=== PATIENT | male | born 1975 | race Caucasian/White ===

== ENCOUNTER 2019-06-27 22:18 | Emergency (ER) | payer OTHER ==
[2019-06-27 22:27] VITALS: TEMP 98.2
[2019-06-27] MEDS ORDERED: LORazepam 1 MG TAB PO STA (22:40)
--- NOTE | 2019-06-27 22:40 | ED ---
Psych HPI - General Source: police, RN notes reviewed, old records reviewed Mode of arrival: ambulatory - History of Present Illness MD Complaint: suicidal ideation, feels depressed -: days(s) Associated Psychiatric Symptoms: depression, suicidal ideation History of same: No Quality: constant Improves With: none Worsens With: alcohol Context: recent alcohol abuse Associated Symptoms: denies other symptoms Treatments Prior to Arrival: placed on mental health hold If Self Harm: admits thoughts of self harm <Dano Ziegler - Last Filed: 06/27/19 23:19> <Joni Johnson - Last Filed: 06/28/19 09:28> - General Chief Complaint: Psychiatric Symptoms Stated Complaint: mental health Time Seen by Provider: 06/27/19 22:25 - History of Present Illness Initial Comments: This is a 44-year-old male DF for evaluation patient presents today for evaluation regards to alcohol intoxication severe. Patient has been significantly depressed as of late secondary to losing employment secondary to pandemic. Patient has been drinking for a few days straight and drink to the point of passing out today was found with gun by him and daughter did call her teacher who was able to calling the police department. Patient for evaluation of suicidal thoughts probable suicidal ideation secondary to significantly increased stress (Dano Ziegler) - Related Data Allergies Allergy/AdvReac Type Severity Reaction Status Date / Time No Known Allergies Allergy Verified 06/27/19 22:42 Review of Systems ROS Other: All systems not noted in ROS Statement are negative. <Dano Ziegler - Last Filed: 06/27/19 23:19> ROS Other: All systems not noted in ROS Statement are negative. <Joni Johnson - Last Filed: 06/28/19 09:28> ROS Statement: Those systems with pertinent positive or pertinent negative responses have been documented in the HPI. Past Medical History Past Medical History: No Reported History History of Any Multi-Drug Resistant Organisms: None Reported Past Surgical History: No Surgical Hx Reported Past Psychological History: No Psychological Hx Reported Smoking Status: Never smoker Past Alcohol Use History: Abuse Past Drug Use History: None Reported <Dano Ziegler - Last Filed: 06/27/19 23:19> General Exam Limitations: no limitations General appearance: alert, in no apparent distress, appears intoxicated Head exam: Present: atraumatic, normocephalic, normal inspection Eye exam: Present: normal appearance, PERRL, EOMI. Absent: scleral icterus, conjunctival injection, periorbital swelling ENT exam: Present: normal exam, mucous membranes moist Neck exam: Present: normal inspection. Absent: tenderness, meningismus, lymphadenopathy Respiratory exam: Present: normal lung sounds bilaterally. Absent: respiratory distress, wheezes, rales, rhonchi, stridor Cardiovascular Exam: Present: regular rate, normal rhythm, normal heart sounds. Absent: systolic murmur, diastolic murmur, rubs, gallop, clicks GI/Abdominal exam: Present: soft, normal bowel sounds. Absent: distended, ten derness, guarding, rebound, rigid Extremities exam: Present: normal inspection, full ROM, normal capillary refill. Absent: tenderness, pedal edema, joint swelling, calf tenderness Back exam: Present: normal inspection Neurological exam: Present: alert, oriented X3, CN II-XII intact Psychiatric exam: Present: normal affect, normal mood Skin exam: Present: warm, dry, intact, normal color. Absent: rash <Dano Ziegler - Last Filed: 06/27/19 23:19> Course <Dano Ziegler - Last Filed: 06/27/19 23:19> Vital Signs 06/27/19 06/28/19 06/28/19 22:19 03:00 07:00 Temperature 98.2 F Pulse Rate 92 86 90 Respiratory 16 18 20 Rate Blood Pressure 153/93 133/87 196/103 O2 Sat by Pulse 98 96 95 Oximetry - Reevaluation(s) Reevaluation #1: 06/27/19 23:22 not scheduled to medical care total 0700 (Dano Ziegler) Medical Decision Making <Joni Johnson - Last Filed: 06/28/19 09:28> - Medical Decision Making Patient seen by mental health services with recommendation for discharge. They did assure the patient has no access to guns. Patient reevaluated by myself, Dr. Johnson. Patient denies suicidal ideation and does contract for safety. (Joni Johnson) Disposition <Dano Ziegler - Last Filed: 06/27/19 23:19> Is patient prescribed a controlled substance at d/c from ED?: No Time of Disposition: 09:27 <Joni Johnson - Last Filed: 06/28/19 09:28> Clinical Impression: Depression, Alcohol intoxication Disposition: HOME SELF-CARE Condition: Stable Instructions (If sedation given, give patient instructions): Depression (ED), Help Prevent Suicide (ED) Additional Instructions: Please follow-up with primary care physician in the next day or 2 for recheck. Please follow-up with mental health services as directed. Return for thoughts of self-harm, worsening symptoms or other concerns. Avoid alcohol. Referrals: Katie Jones DO [REFERRING] - 1-2 days
[2019-06-27] MEDS ORDERED: LORazepam 2 MG/ML INJ IV STA (22:43)
[2019-06-27] MEDS ORDERED: SODIUM CHLORIDE 0.9% 1,000 ML IV STA ×2 (22:43)
[2019-06-27] MEDS ORDERED: SODIUM CHLORIDE 0.9% 500 ML 500 ML IV STA (22:43)
[2019-06-28] MEDS ORDERED: LORazepam 2 MG/ML INJ IV STA (03:19)
[2019-06-28 09:27] VITALS: BP 165/96; PULSE 97; RESP 18
== END 2019-06-28 09:21 | disposition home or self-care (01) ==
LOC: EC 22:18
DX: F32.9 Major depressive disorder, single episode, unspecified (principal); F10.129 Alcohol abuse with intoxication, unspecified
CPT/HCPCS: 82075; 99285; 96374; 96376; 96361 ×9; J2060 ×2

== ENCOUNTER 2022-10-14 14:25 | Observation (INO) | payer OTHER ==
[2022-10-14] MEDS ORDERED: SODIUM CHLORIDE 0.9% 1,000 ML IV STA (14:35)
[2022-10-14] MEDS ORDERED: THIAMINE 100 MG TAB PO STA (14:35)
[2022-10-14] MEDS ORDERED: ASPIRIN 325 MG TAB PO STA (14:41)
[2022-10-14] MEDS ORDERED: ONDANSETRON 4 MG/2 ML VIAL IVP STA (14:44)
[2022-10-14 15:05] LABS: Basophils % (A) 0 %; Eosinophils % (A) 1 %; HCT 39.2 % (39.0-53.0); HGB 13.6 gm/dL (13.0-17.5); Lymphocytes % (A) 44 %; MCH 31.5 pg (25.0-35.0); MCHC 34.8 g/dL (31.0-37.0); MCV 90.6 fL (80.0-100.0); Mean Platelet Volume 8.3; Monocytes # (A) 0.3 k/uL (0-1.0); Monocytes % (A) 7 %; Neutrophils # (A) 2.1 k/uL (1.3-7.7); Neutrophils % (A) 46 %; Platelet Count 142 k/uL (150-450); RBC 4.32 m/uL (4.30-5.90); RDW 14.1 % (11.5-15.5); WBC 4.6 k/uL (3.8-10.6)
[2022-10-14 15:14] LABS: Partial Thromboplastin Time 23.8 sec (22.0-30.0); Prothrombin Time 10.5 sec (9.0-12.0)
--- NOTE | 2022-10-14 15:15 | ED ---
General Adult HPI - General Chief complaint: Psychiatric Symptoms Stated complaint: ETOH Time Seen by Provider: 10/14/22 14:35 Source: EMS Mode of arrival: EMS - History of Present Illness Initial comments: Patient is a 47-year-old male who presents to the emergency department for suicidal ideation. Patient is intoxicated he is an unreliable historian. According to EMS patient's daughter called due to suicidal ideation. Patient cannot provide any information about this. When asking about pain patient replies that he has chest and back pain for the past 3 days. He denies any ripping or tearing sensation. He cannot provide any information about cardiac history. - Related Data Home Medications Medication Instructions Recorded Confirmed Acetaminophen [Tylenol Arthritis] 650 mg PO Q8H PRN 10/14/22 10/14/22 Apixaban [Eliquis Starter Pack See Taper PO DIRECTED 10/14/22 10/14/22 (for VTE)] Atorvastatin [Lipitor] 40 mg PO DAILY 10/14/22 10/14/22 Ergocalciferol [Vitamin D2 (1250 1,250 mcg PO Q7D 10/14/22 10/14/22 Mcg = 34738 Iu)] Fenofibrate,Micronized 200 mg PO DAILY 10/14/22 10/14/22 [Fenofibrate] Magnesium Oxide [Magox 400] 400 mg PO DAILY 10/14/22 10/14/22 Multivitamins, Thera [Multivitamin 1 tab PO DAILY 10/14/22 10/14/22 (formulary)] NIFEdipine [Procardia XL] 90 mg PO DAILY 10/14/22 10/14/22 Pantoprazole [Protonix] 40 mg PO BID 10/14/22 10/14/22 Potassium Chloride ER [K-Dur 20] 20 meq PO DAILY 10/14/22 10/14/22 Thiamine [Vitamin B-1] 100 mg PO DAILY 10/14/22 10/14/22 buPROPion XL [Wellbutrin XL] 300 mg PO DAILY 10/14/22 10/14/22 busPIRone HCL [Buspar] 7.5 mg PO BID 10/14/22 10/14/22 carvediloL [Coreg] 25 mg PO BID 10/14/22 10/14/22 hydroCHLOROthiazide 12.5 mg PO DAILY 10/14/22 10/14/22 Allergies Allergy/AdvReac Type Severity Reaction Status Date / Time No Known Allergies Allergy Verified 10/14/22 17:19 Review of Systems ROS Statement: Those systems with pertinent positive or pertinent negative responses have been documented in the HPI. ROS Other: All systems not noted in ROS Statement are negative. Past Medical History Past Medical History: No Reported History History of Any Multi-Drug Resistant Organisms: None Reported Past Surgical History: No Surgical Hx Reported Past Psychological History: No Psychological Hx Reported Past Alcohol Use History: Abuse Past Drug Use History: None Reported General Exam General appearance: appears intoxicated Head exam: Present: atraumatic, normocephalic, normal inspection Eye exam: Present: normal appearance, PERRL, EOMI. Absent: scleral icterus, conjunctival injection, periorbital swelling Respiratory exam: Present: normal lung sounds bilaterally. Absent: respiratory distress, wheezes, rales, rhonchi, stridor Cardiovascular Exam: Present: regular rate, normal rhythm, normal heart sounds. Absent: systolic murmur, diastolic murmur, rubs, gallop, clicks GI/Abdominal exam: Present: soft, normal bowel sounds. Absent: distended, tenderness, guarding, rebound, rigid Skin exam: Present: warm, dry, intact, normal color. Absent: rash Course Vital Signs 10/14/22 14:36 Temperature 98.7 F Blood Pressure 122/76 Medical Decision Making - Medical Decision Making EKG taken at 145, interpreted by myself Sinus rhythm, no ST segment or T-wave abnormality Ventricular rate 87, AK interval 175, QRS duration 95, QTC 395 Was pt. sent in by a medical professional or institution (, PA, SURGERY SPECIALIST, urgent care, hospital, or long-term...) When possible be specific @ -[No] Did you speak to anyone other than the patient for history (EMS, parent, family, police, friend...)? What history was obtained from this source @ -[No] Did you review nursing and triage notes (agree or disagree)? Why? @ -[I reviewed and agree with nursing and triage notes] Were old charts reviewed (outside hosp., previous admission, EMS record, old EKG, old radiological studies, urgent care reports/EKG's, long-term records)? Report findings @ -[No old charts were reviewed] Differential Diagnosis (chest pain, altered mental status, abdominal pain women, abdominal pain men, vaginal bleeding, weakness, fever, dyspnea, syncope, headache, dizziness, GI bleed, back pain, seizure, CVA, palpatations, mental health)? @ -Differential Chest Pain: Stable Angina, Unstable Angina, STEMI, NSTEMI Aortic Dissection, Pneumothorax, Musculoskeletal, Esophageal Spasm GERD, Cholecystitis, Pancreatitis, Zoster, this is not meant to be an all-inclusive list. EKG interpreted by me (3pts min.). @ -[As above] X-rays interpreted by me (1pt min.). @ -No acute cardiopulmonary process CT interpreted by me (1pt min.). @ -[None done] U/S interpreted by me (1pt. min.). @ -[None done] What testing was considered but not performed or refused? (CT, X-rays, U/S, labs)? Why? @ -[None] What meds were considered but not given or refused? Why? @ -[None] Did you discuss the management of the patient with other professionals (professionals i.e. , PA, SURGERY SPECIALIST, lab, RT, psych nurse, social work nurse, towerman, teacher, executive vice president and chief operating officer, case making machine operator)? Give summary @ -[No] Was smoking cessation discussed for >3mins.? @ -[No] Was critical care preformed (if so, how long)? @ -[No] Were there social determinants of health that impacted care today? How? (Homelessness, low income, unemployed, alcoholism, drug addiction, transportatio n, low edu. Level, literacy, decrease access to med. care, [facility], rehab)? @ -[No] Was there de-escalation of care discussed even if they declined (Discuss DNR or withdrawal of care, Hospice)? DNR status @ -[No] What co-morbidities impacted this encounter? (DM, HTN, Smoking, COPD, CAD, Cancer, CVA, ARF, Chemo, Hep., AIDS, mental health diagnosis, sleep apnea, morbid obesity)? @ -[None] Was patient admitted / discharged? Hospital course, mention meds given and route, prescriptions, significant lab abnormalities, going to OR and other pertinent info. @ Patient continuously combative and agitated during visit he was given Ativan. Admitted for alcohol intoxication and possible suicidal ideation with CIWA protocol Michelle from [facility] accepts Undiagnosed new problem with uncertain prognosis? @ -[No] Drug Therapy requiring intensive monitoring for toxicity (Heparin, Nitro, Insulin, Cardizem)? @ -[No] Were any procedures done? @ -[No] Diagnosis/symptom? @ -alcohol intoxication Acute, or Chronic, or Acute on Chronic? @ -acute Uncomplicated (without systemic symptoms) or Complicated (systemic symptoms)? @ -uncomplicated Side effects of treatment? @ -[No] Exacerbation, Progression, or Severe Exacerbation? @ -[No] Poses a threat to life or bodily function? How? (Chest pain, USA, VT, pneumonia, PE, COPD, DKA, ARF, appy, cholecystitis, CVA, Diverticulitis, Homicidal, Suicidal, threat to staff... and all critical care pts) @ -Yes Dr. Mcgrath is my attending - Lab Data Result diagrams: 10/14/22 14:56 10/14/22 14:56 Lab Results 10/14/22 10/14/22 10/14/22 Range/Units 14:56 14:56 14:56 WBC 4.6 (3.8-10.6) k/uL RBC 4.32 (4.30-5.90) m/uL Hgb 13.6 (13.0-17.5) gm/dL Hct 39.2 (39.0-53.0) % MCV 90.6 (80.0-100.0) fL MCH 31.5 (25.0-35.0) pg MCHC 34.8 (31.0-37.0) g/dL RDW 14.1 (11.5-15.5) % Plt Count 142 L (150-450) k/uL MPV 8.3 Neutrophils % 46 % Lymphocytes % 44 % Monocytes % 7 % Eosinophils % 1 % Basophils % 0 % Neutrophils # 2.1 (1.3-7.7) k/uL Lymphocytes # 2.0 (1.0-4.8) k/uL Monocytes # 0.3 (0-1.0) k/uL Eosinophils # 0.0 (0-0.7) k/uL Basophils # 0.0 (0-0.2) k/uL PT 10.5 (9.0-12.0) sec INR 1.0 (<1.2) APTT 23.8 (22.0-30.0) sec Sodium 140 (137-145) mmol/L Potassium 4.1 (3.5-5.1) mmol/L Chloride 100 (98-107) mmol/L Carbon Dioxide 26 (22-30) mmol/L Anion Gap 14 mmol/L BUN 16 (9-20) mg/dL Creatinine 0.86 (0.66-1.25) mg/dL Est GFR (CKD-EPI)AfAm >90 (>60 ml/min/1.73 sqM) Est GFR (CKD-EPI)NonAf >90 (>60 ml/min/1.73 sqM) Glucose 115 H (74-99) mg/dL Calcium 8.5 (8.4-10.2) mg/dL Magnesium 2.0 (1.6-2.3) mg/dL Total Bilirubin 0.7 (0.2-1.3) mg/dL AST 75 H (17-59) U/L ALT 50 H (4-49) U/L Alkaline Phosphatase 85 (38-126) U/L Troponin I (0.000-0.034) ng/mL Total Protein 8.2 (6.3-8.2) g/dL Albumin 4.5 (3.5-5.0) g/dL Lipase 499 H (23-300) U/L Serum Alcohol 379 H* mg/dL 10/14/22 Range/Units 14:56 WBC (3.8-10.6) k/uL RBC (4.30-5.90) m/uL Hgb (13.0-17.5) gm/dL Hct (39.0-53.0) % MCV (80.0-100.0) fL MCH (25.0-35.0) pg MCHC (31.0-37.0) g/dL RDW (11.5-15.5) % Plt Count (150-450) k/uL MPV Neutrophils % % Lymphocytes % % Monocytes % % Eosinophils % % Basophils % % Neutrophils # (1.3-7.7) k/uL Lymphocytes # (1.0-4.8) k/uL Monocytes # (0-1.0) k/uL Eosinophils # (0-0.7) k/uL Basophils # (0-0.2) k/uL PT (9.0-12.0) sec INR (<1.2) APTT (22.0-30.0) sec Sodium (137-145) mmol/L Potassium (3.5-5.1) mmol/L Chloride (98-107) mmol/L Carbon Dioxide (22-30) mmol/L Anion Gap mmol/L BUN (9-20) mg/dL Creatinine (0.66-1.25) mg/dL Est GFR (CKD-EPI)AfAm (>60 ml/min/1.73 sqM) Est GFR (CKD-EPI)NonAf (>60 ml/min/1.73 sqM) Glucose (74-99) mg/dL Calcium (8.4-10.2) mg/dL Magnesium (1.6-2.3) mg/dL Total Bilirubin (0.2-1.3) mg/dL AST (17-59) U/L ALT (4-49) U/L Alkaline Phosphatase (38-126) U/L Troponin I <0.012 (0.000-0.034) ng/mL Total Protein (6.3-8.2) g/dL Albumin (3.5-5.0) g/dL Lipase (23-300) U/L Serum Alcohol mg/dL Disposition Clinical Impression: Suicidal ideation, Alcohol intoxication Disposition: ADMITTED IP TO THIS [facility] Condition: Stable Referrals: None,Stated [Primary Care Provider] - 1-2 days
[2022-10-14 15:16] LABS: ALT 50 U/L (4-49); AST 75 U/L (17-59); African American GFR (CKD) >90 (>60 ml/min/1.73 sqM); Albumin 4.5 g/dL (3.5-5.0); Alkaline Phosphatase 85 U/L (38-126); Anion Gap 14 mmol/L; Blood Urea Nitrogen 16 mg/dL (9-20); Calcium 8.5 mg/dL (8.4-10.2); Carbon Dioxide 26 mmol/L (22-30); Chloride 100 mmol/L (98-107); Glucose 115 mg/dL (74-99); Lipase 499 U/L (23-300); Non-African American GFR(CKD) >90 (>60 ml/min/1.73 sqM); Potassium 4.1 mmol/L (3.5-5.1); Sodium 140 mmol/L (137-145); Total Bilirubin 0.7 mg/dL (0.2-1.3); Total Protein 8.2 g/dL (6.3-8.2)
[2022-10-14] MEDS ORDERED: LORazepam 2 MG/ML INJ IV STA ×2 (15:23→16:18)
[2022-10-14 15:26] LABS: Alcohol 379 mg/dL
[2022-10-14] MEDS ORDERED: SODIUM CHLORIDE 0.9% 1,000 ML with MVI, ADULT NO.4 WITH VIT K 10 ML, THIAMINE 100 MG, F... IV ONE ×4 (16:09)
[2022-10-14] MEDS ORDERED: LORazepam 0.5 MG TAB PO PRN (16:12)
[2022-10-14] MEDS ORDERED: THIAMINE 100 MG/ML 2 ML VIAL IM STA (16:12)
[2022-10-14] MEDS ORDERED: LORazepam 1 MG TAB PO PRN ×2 (16:12)
--- NOTE | 2022-10-14 16:16 | XR ---
EXAMINATION TYPE: XR chest 2V DATE OF EXAM: 10/14/2022 COMPARISON: Chest pain INDICATION: Chest pain TECHNIQUE: Frontal and lateral views of the chest are obtained. FINDINGS: The heart size is normal. The pulmonary vasculature is normal. The lungs are clear. IMPRESSION: 1. No acute pulmonary process.
[2022-10-14] MEDS ORDERED: NALOXONE 0.4 MG/ML 1 ML VIAL IV PRN (18:02)
[2022-10-14] MEDS: LORazepam 1 MG TAB PO PRN (20:06)
[2022-10-14 20:42] LABS: Amphetamine Screen,Urine Not Detected (NotDetected); Barbiturate Screen,Urine Not Detected (NotDetected); Benzodiazepines Screen,Urine Detected (NotDetected); Cocaine Screen,Urine Not Detected (NotDetected); Methadone Screen, Urine Not Detected (NotDetected); Opiate Screen,Urine Not Detected (NotDetected); Oxycodone Screen, Urine Not Detected (NotDetected); Phencyclidine Screen,Urine Not Detected (NotDetected); Tricyclic Antidepressant,Urine Not Detected (NotDetected); Urn Cannabinoid Scrn Not Detected (NotDetected)
[2022-10-14 20:44] LABS: Appearance,Urine Clear (Clear); Bilirubin,Urine Negative (Negative); Blood,Urine Negative (Negative); Color,Urine Yellow; Glucose,Urine (UA) Negative (Negative); Ketones,Urine Negative (Negative); Leukocyte Esterase,Urine Negative (Negative); Mucus,Urine Few /hpf; Nitrite,Urine Negative (Negative); Protein,Urine 1+ (Negative); RBC,Urine 1 /hpf (0-5); Specific Gravity,Urine 1.013 (1.001-1.035); Urobilinogen,Urine <2.0 mg/dL (<2.0)
[2022-10-14] MEDS: KETOROLAC 15 MG/ML 1 ML VIAL IVP PRN (22:58)
[2022-10-14] MEDS: NICOTINE 21MG/24HR PATCH TRANSDERM SCH (22:58)
[2022-10-14] MEDS: MELATONIN 5 MG TABLET PO SCH (22:58)
[2022-10-14] MEDS: SODIUM CHLORIDE 0.9% 1,000 ML IV SCH (22:59)
[2022-10-14] MEDS: ONDANSETRON 4 MG/2 ML VIAL IVP PRN (23:36)
[2022-10-14] MEDS: LORazepam 2 MG/ML INJ IV PRN (23:36)
[2022-10-15] MEDS: PANTOPRAZOLE 40 MG TABLET PO SCH ×2 (06:30→17:57)
[2022-10-15] MEDS: SODIUM CHLORIDE 0.9% 1,000 ML IV SCH ×2 (06:31→17:58)
[2022-10-15] MEDS: KETOROLAC 15 MG/ML 1 ML VIAL IVP PRN (06:33)
[2022-10-15] MEDS ORDERED: ERGOCALCIFEROL 1,250 MCG (50,000 IU) CAPSULE PO SCH (09:00)
[2022-10-15] MEDS: POTASSIUM CHLORIDE ER 20 MEQ TAB.ER PO SCH (09:00)
[2022-10-15] MEDS: ATORVASTATIN 40 MG TAB PO SCH (09:00)
[2022-10-15] MEDS: hydroCHLOROthiazide 12.5 MG CAP PO SCH (09:00)
[2022-10-15] MEDS: MAGNESIUM OXIDE 400 MG TAB PO SCH (09:00)
[2022-10-15] MEDS: carvediloL 12.5 MG TAB PO SCH ×2 (09:00→20:07)
[2022-10-15] MEDS: THIAMINE 100 MG TAB PO SCH (09:00)
[2022-10-15] MEDS: FENOFIBRATE 160 MG TAB PO SCH (09:01)
[2022-10-15] MEDS: NICOTINE 21MG/24HR PATCH TRANSDERM SCH (09:01)
[2022-10-15] MEDS: NIFEdipine XL 90 MG TAB.ER.24 PO SCH (09:01)
[2022-10-15] MEDS: APIXABAN 5 MG TAB PO SCH ×2 (09:01→20:07)
[2022-10-15] MEDS: MULTIVITAMINS, THERA 1 EACH TAB PO SCH (09:01)
[2022-10-15] MEDS: ACETAMINOPHEN TAB 325 MG TAB PO PRN ×2 (09:10→20:07)
[2022-10-15] MEDS: LORazepam 2 MG/ML INJ IV PRN (09:11)
[2022-10-15] MEDS: ONDANSETRON 4 MG/2 ML VIAL IVP PRN (09:11)
--- NOTE | 2022-10-15 13:48 | P.HPIM ---
History of Present Illness H&P Date: 10/15/22 History of present illness; patient is 47-year-old gentleman who presented to [facility] ER yesterday because of suicidal ideations. Patient was intoxicated, daughter called EMS because he was expressing thoughts of hurting himself. Patient was brought to the ER, he did express that he had chest pain and back pain. Denies any shortness of breath. Denies any swelling of feet. Denies any orthopnea or PND. There was no complain of fever or chills. No complaint of cough. Denies any auditory or visual hallucinations. Initial lab work done in the ER showed WBC 4.6, hemoglobin 13.6, platelet 142, sodium 140, potassium 4.1, BUN 16, creatinine 0.86, AST 75, ALT 50 lipase 499. Urine tox was positive for benzodiazepines. Serum alcohol level was 379 REVIEW OF SYSTEMS: CONSTITUTIONAL: No fever, no malaise, no fatigue. Complaining of back pain HEENT: No recent visual problems or hearing problems. Denied any sore throat. CARDIOVASCULAR: As mentioned in HPI PULMONARY: No shortness of breath, no cough, no hemoptysis. GASTROINTESTINAL: No diarrhea, no nausea, no vomiting, no abdominal pain. NEUROLOGICAL: No headaches, no weakness, no numbness. HEMATOLOGICAL: Denies any bleeding or petechiae. GENITOURINARY: Denies any burning micturition, frequency, or urgency. MUSCULOSKELETAL/RHEUMATOLOGICAL: Denies any joint pain, swelling, or any muscle pain. ENDOCRINE: Denies any polyuria or polydipsia. The rest of the 14-point review of systems is negative. PHYSICAL EXAMINATION: GENERAL: The patient is alert and oriented x3, not in any acute distress. Well developed, well nourished. HEENT: Pupils are round and equally reacting to light. EOMI. No scleral icterus. No conjunctival pallor. Normocephalic, atraumatic. No pharyngeal erythema. No thyromegaly. CARDIOVASCULAR: S1 and S2 present. No murmurs, rubs, or gallops. PULMONARY: Chest is clear to auscultation, no wheezing or crackles. ABDOMEN: Soft, nontender, nondistended, normoactive bowel sounds. No palpable organomegaly. MUSCULOSKELETAL: No joint swelling or deformity. EXTREMITIES: No cyanosis, clubbing, or pedal edema. NEUROLOGICAL: Gross neurological examination did not reveal any focal deficits. SKIN: No rashes. Assessment and plan Alcohol intoxication Suicidal ideations Acute pancreatitis History of depression History of hypertension History of VTE Monitor vital signs Monitor CBC Monitor CMP Continue telemetry monitoring Seizure precautions Elopement precautions Continue thiamine and folic acid Continue CIWA protocol Continue IV fluids Continue pain management Ordered ultrasound of abdominal Resume home meds Consult psychiatry Labs and medication were reviewed.. Continue same treatment. Continue with symptomatic treatment. Resume home medication. Monitor labs and vitals. DVT and GI prophylaxis. Further recommendations as per clinical course of the patient Past Medical History Past Medical History: Hypertension Additional Past Medical History / Comment(s): left foot surgery pt states he has steel in his foot. Blood clots in arm pt is now on eliquis, states it was within the last month History of Any Multi-Drug Resistant Organisms: None Reported Past Surgical History: No Surgical Hx Reported Past Anesthesia/Blood Transfusion Reactions: No Reported Reaction Past Psychological History: Anxiety Smoking Status: Current every day smoker Past Alcohol Use History: Abuse Additional Past Alcohol Use History / Comment(s): x2 fiths per day per pt Past Drug Use History: None Reported Medications and Allergies Home Medications Medication Instructions Recorded Confirmed Type Acetaminophen [Tylenol Arthritis] 650 mg PO Q8H PRN 10/14/22 10/14/22 History Apixaban [Eliquis Starter Pack See Taper PO DIRECTED 10/14/22 10/14/22 History (for VTE)] Atorvastatin [Lipitor] 40 mg PO DAILY 10/14/22 10/14/22 History Ergocalciferol [Vitamin D2 (1250 1,250 mcg PO Q7D 10/14/22 10/14/22 History Mcg = 87511 Iu)] Fenofibrate,Micronized 200 mg PO DAILY 10/14/22 10/14/22 History [Fenofibrate] Magnesium Oxide [Magox 400] 400 mg PO DAILY 10/14/22 10/14/22 History Multivitamins, Thera [Multivitamin 1 tab PO DAILY 10/14/22 10/14/22 History (formulary)] NIFEdipine [Procardia XL] 90 mg PO DAILY 10/14/22 10/14/22 History Pantoprazole [Protonix] 40 mg PO BID 10/14/22 10/14/22 History Potassium Chloride ER [K-Dur 20] 20 meq PO DAILY 10/14/22 10/14/22 History Thiamine [Vitamin B-1] 100 mg PO DAILY 10/14/22 10/14/22 History buPROPion XL [Wellbutrin XL] 300 mg PO DAILY 10/14/22 10/14/22 History busPIRone HCL [Buspar] 7.5 mg PO BID 10/14/22 10/14/22 History carvediloL [Coreg] 25 mg PO BID 10/14/22 10/14/22 History hydroCHLOROthiazide 12.5 mg PO DAILY 10/14/22 10/14/22 History Allergies Allergy/AdvReac Type Severity Reaction Status Date / Time No Known Allergies Allergy Verified 10/14/22 17:19 Physical Exam Vitals: Vital Signs Temp Pulse Pulse Resp BP BP Pulse Ox 10/15/22 09:05 95 10/15/22 07:00 98.4 F 119 H 18 162/84 97 10/15/22 01:15 98.9 F 110 H 20 130/76 96 10/14/22 21:57 98.6 F 111 H 18 139/72 94 L 10/14/22 20:47 108 H 20 126/75 96 10/14/22 14:36 98.7 F 122/76 Intake and Output 10/14/22 10/15/22 10/15/22 22:59 06:59 14:59 Output Total 150 Balance -150 Output: Urine 150 Other: # Voids 2 Weight 127.006 kg Results CBC & Chem 7: 10/14/22 14:56 10/14/22 14:56 Labs: Abnormal Lab Results - Last 24 Hours (Table) 10/14/22 10/14/22 10/14/22 Range/Units 14:56 14:56 19:57 Plt Count 142 L (150-450) k/uL Glucose 115 H (74-99) mg/dL AST 75 H (17-59) U/L ALT 50 H (4-49) U/L Lipase 499 H (23-300) U/L Urine Protein 1+ H (Negative) Urine Mucus Few H (None) /hpf U Benzodiazepines Scrn Detected H (NotDetected) Serum Alcohol 379 H* mg/dL Thrombosis Risk Factor Assmnt - Choose All That Apply Any of the Below Risk Factors Present?: Yes Each Factor Represents 1 point: Age 41-60 years, Obesity (BMI >25) Other Risk Factors: Yes Each Risk Factor Represents 3 Points: History of DVT/PE Thrombosis Risk Factor Assessment Total Risk Factor Score: 5 Thrombosis Risk Factor Assessment Level: High Risk
--- NOTE | 2022-10-15 14:10 | P.CN ---
Psychiatric Consult - . Consult date: 10/15/22 Consult:: 10/15/22 14:10 IDENTIFYING DATA: This patient is a , employed, 47-year-old male with significant history of alcohol use disorder presents for hospital on 10/14/2022 by EMS for suicidal ideation in the context of alcohol intoxication. HISTORY OF PRESENT ILLNESS: The patient presented to the hospital on 10/14/2022, brought in by EMS for suicidal ideation and acute alcohol intoxication. The patient's serum alcohol was 379 department and he was noted to be grossly intoxicated. The patient was brought in by EMS after the patient's daughter called emergency services for wellness check for him. He texts that his daughter that he "loved her and that he could not do this anymore." The patient was subsequently brought to the hospital and admitted medically for acute alcohol intoxication and concern for withdrawal. Psychiatrist been consulted for evaluation of suicidal ideation. The patient was agreeable to the psychiatric interview. He does admit to a long history of depression and heavy alcohol use. He reports that he has been drinking up to 3 fifths of liquor per day intermittently over the past few years. As per daughter, he has been drinking excessively over the past few days as it was recently the anniversary of his first 's . He does report significant symptoms of depression including anhedonia, low mood, and elevated anxiety. He is however vehemently denying any suicidal or homicidal ideation, intention, and/or plan. The patient has one prior attempt at suicide in 2019 when he had a firearm next to him while he was intoxicated. The patient does admit to having access to firearms are currently locked up in his home. He is agreeable for his daughter Chrissy to hold onto his safety at this time. Chrissy was made aware and she is agreeable to this plan. He is not endorsing any significant symptoms of bipolar disorder. He denies any auditory or visual hallucinations. He reports no paranoia or other delusions. PAST PSYCHIATRIC HISTORY: Patient has a history of depression, anxiety, alcohol use disorder. The patient's home medications include BuSpar and Wellbutrin however the patient states that none of the medications have been helping. The patient has been drinking on these medications. Patient denies any previous psychiatric hospitalizations. He reports that he has outpatient psychiatry follow-up in [place]. One prior suicide attempt back in 2019. PAST MEDICAL HISTORY: Past Medical History: Hypertension Additional Past Medical History / Comment(s): left foot surgery pt states he has steel in his foot. Blood clots in arm pt is now on eliquis, states it was within the last month History of Any Multi-Drug Resistant Organisms: None Reported Past Surgical History: No Surgical Hx Reported Past Anesthesia/Blood Transfusion Reactions: No Reported Reaction Past Psychological History: Anxiety Smoking Status: Current every day smoker Past Alcohol Use History: Abuse Additional Past Alcohol Use History / Comment(s): x2 fiths per day per pt Past Drug Use History: None Reported ALLERGIES: NO KNOWN DRUG ALLERGIES CHEMICAL DEPENDENCY HISTORY: The patient reports that he has been drinking up to 3 fifths of liquor per day. He reports daily tobacco use approximates one pack per day. Denies any illicit drug use. He reports no marijuana use. He reports that he went to inpatient substance abuse rehabilitation for alcohol use disorder once in the past however left the program because "everyone there was doing drugs and I am not into that." FAMILY PSYCHIATRIC/SUBSTANCE USE HISTORY: No reported family psychiatric history. Reports that his son transitioned into being a female. SOCIAL HISTORY: Patient was born and raised in [place], [place]. He is currently . He was twice. His first at age 31 and the patient reports that he was the one to raise 3 of his children (2 daughters and 1 son). He does report that he wishes to reconcile things with his son however he and his son who has gender dysphoria and transition to a female are not speaking terms because of his disagreement with his son's choices . MENTAL STATUS EXAM: General Appearance: Patient appears to be stated age is alert, pleasant, and cooperative. Patient appears to have fair hygiene and grooming wearing hospital gown with fair eye contact. Behavior: Patient is calmly lying in bed without any agitated behavior. Speech: Patient's speech is fluent and nonpressured. Mood/Affect: Patient reports their mood is "depressed", affect is congruent and constricted Suicidality/Homicidality: Patient is vehemently denying any suicidal or homicidal ideation, intention, and/or plan. Perceptions: Patient denies any visual hallucinations and denies any auditory hallucinations Though content/process: There is no evidence of any delusional thought content and thought process is linear and goal-directed. Memory and concentration: AOX3, grossly intact for the purposes of this session. Can spell "WORLD" backwards Judgment and insight: Fair IMPRESSIONS: Major depressive disorder, recurrent, moderate Alcohol use disorder Nicotine dependence PLAN: -Continue your medical management. -At this time patient DOES NOT meet criteria for inpatient psychiatric admission. The patient is vehemently denying any suicidal or homicidal ideatio n, intention, and/or plan. He is currently future and goal oriented. He agrees to appropriate safety planning including restricting his access to his firearms and providing the safe guevara to his daughter Chrissy ([phone]). 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 However, the patient should not continue Wellbutrin upon discharge. The patient drinks heavily and therefore this places him at increased risk of seizure with Wellbutrin. -May discontinue one-to-one sitter -Recommend case management to set up appropriate aftercare appointments and to provide the patient with resources for alcohol cessation. -Approximately 30 minutes were spent providing patient with supportive psychotherapy and motivational interviewing. -Psychiatry will sign off at this point, please contact with any questions. 10/15/22 14:10
[2022-10-15] MEDS: LORazepam 1 MG TAB PO PRN (15:08)
[2022-10-15 19:32] VITALS: RESP 16
[2022-10-15] MEDS: MELATONIN 5 MG TABLET PO SCH (20:07)
[2022-10-16] MEDS: PANTOPRAZOLE 40 MG TABLET PO SCH (06:30)
[2022-10-16] MEDS: SODIUM CHLORIDE 0.9% 1,000 ML IV SCH (06:37)
[2022-10-16 07:47] VITALS: BP 149/89; PULSE 94; TEMP 97.9
--- NOTE | 2022-10-16 07:54 | US ---
EXAMINATION TYPE: US abdomen complete DATE OF EXAM: 10/16/2022 COMPARISON: NONE CLINICAL INDICATION: Male, 47 years old with history of Abdominal pain, elevated LFTs; Elevated LFT's , history of ETOH abuse TECHNIQUE: Multiple sonographic images of the abdomen are obtained. FINDINGS: EXAM MEASUREMENTS: Liver Length: 19.8 cm Gallbladder Wall: 0.3 cm CBD: 0.5 cm Spleen: 8.1 cm Right Kidney: 11.2 x 5.4 x 5.6 cm Left Kidney: 11.6 x 6.3 x 5.7 cm UNDERGROUND MINE SUPERINTENDENT NOTES: Pancreas: wnl, tail obscured by overlying bowel gas Liver: Enlarged, heterogeneous Gallbladder: wnl Evidence for sonographic Dan's sign: Yes CBD: wnl Spleen: wnl Right Kidney: wnl Left Kidney: wnl Upper IVC: wnl Abd Aorta: Obscured by overlying bowel gas IMPRESSION: 1. Hepatomegaly with mild fatty infiltration of the liver.
[2022-10-16] MEDS: FENOFIBRATE 160 MG TAB PO SCH (08:16)
[2022-10-16] MEDS: POTASSIUM CHLORIDE ER 20 MEQ TAB.ER PO SCH (08:16)
[2022-10-16] MEDS: APIXABAN 5 MG TAB PO SCH (08:16)
[2022-10-16] MEDS: hydroCHLOROthiazide 12.5 MG CAP PO SCH (08:16)
[2022-10-16] MEDS: NICOTINE 21MG/24HR PATCH TRANSDERM SCH (08:16)
[2022-10-16] MEDS: THIAMINE 100 MG TAB PO SCH (08:16)
[2022-10-16] MEDS: MULTIVITAMINS, THERA 1 EACH TAB PO SCH (08:17)
[2022-10-16] MEDS: NIFEdipine XL 90 MG TAB.ER.24 PO SCH (08:17)
[2022-10-16] MEDS: carvediloL 12.5 MG TAB PO SCH (08:17)
[2022-10-16] MEDS: ATORVASTATIN 40 MG TAB PO SCH (08:17)
[2022-10-16] MEDS: MAGNESIUM OXIDE 400 MG TAB PO SCH (08:18)
[2022-10-16 11:07] LABS: HCT 36.6 % (39.6-50.0); HGB 13.1 d/dL (12.0-15.0); MCH 31.6 pg (27.0-32.0); MCHC 35.8 d/dL (32.0-37.0); MCV 88.4 FL (80.0-97.0); Mean Platelet Volume 11.7 FL (9.5-12.2); NRBC Per 100 WBC 0.02 X 10*3/uL (0.00-0.01); Platelet Count 104 X 10*3/uL (140-440); RBC 4.14 X 10*6/uL (4.40-5.60); RDW 13.9 % (11.5-14.5)
[2022-10-16 11:30] LABS: ALT 44 U/L (10-49); AST 48 U/L (14-35); Albumin 4.2 d/dL (3.8-4.9); Albumin/Globulin Ratio 1.45 Ratio (1.60-3.17); Alkaline Phosphatase 90 U/L (41-126); BUN/Creat Ratio 13.78 Ratio (12.00-20.00); Blood Urea Nitrogen 12.4 mg/dL (9.0-27.0); Calcium 9.2 mg/dL (8.7-10.3); Chloride 99 mmol/L (96-109); Globulin 2.9 d/dL (1.6-3.3); Glucose 114 mg/dL (70-110); Potassium 3.4 mmol/L (3.5-5.5); Sodium 136 mmol/L (135-145); Total Bilirubin 0.9 mg/dL (0.3-1.2); Total Protein 7.1 d/dL (6.2-8.2)
--- NOTE | 2022-10-16 12:56 | P.DS ---
Providers Date of admission: 10/14/22 20:45 Expected date of discharge: 10/16/22 Attending physician: Jannie Leon Consults: 10/14/22 18:02 Consult Physician Routine Consulting Provider: Ky Ruiz Reason/Comments: SI Do you want consulting provider notified?: Already Contacted Primary care physician: Stated None Hospital Course: Discharge diagnoses; Alcohol intoxication Suicidal ideations Acute pancreatitis History of depression History of hypertension History of VTE Hospital course; patient is 47-year-old gentleman who presented to the ER yesterday because of suicidal ideations. Patient was intoxicated, daughter called EMS because he was expressing thoughts of hurting himself. Patient was brought to the ER, he did express that he had chest pain and back pain. Denies any shortness of breath. Denies any swelling of feet. Denies any orthopnea or PND. There was no complain of fever or chills. No complaint of cough. Denies any auditory or visual hallucinations. Initial lab work done in the ER showed WBC 4.6, hemoglobin 13.6, platelet 142, sodium 140, potassium 4.1, BUN 16, creatinine 0.86, AST 75, ALT 50 lipase 499. Urine tox was positive for benzodiazepines. Serum alcohol level was 379 10/16. Patient seen and examined. Psychiatric evaluated the patient recommended at that at this time patient does not meet criteria for inpatient psych admission, they recommended discontinue Wellbutrin. Currently patient tolerating diet. Ultrasound abdomen done showed fatty liver, no biliary pat hology noticeable. Patient was discharged stable condition PHYSICAL EXAMINATION: GENERAL: The patient is alert and oriented x3, not in any acute distress. Well developed, well nourished. HEENT: Pupils are round and equally reacting to light. EOMI. No scleral icterus. No conjunctival pallor. Normocephalic, atraumatic. No pharyngeal erythema. No thyromegaly. CARDIOVASCULAR: S1 and S2 present. No murmurs, rubs, or gallops. PULMONARY: Chest is clear to auscultation, no wheezing or crackles. ABDOMEN: Soft, nontender, nondistended, normoactive bowel sounds. No palpable organomegaly. MUSCULOSKELETAL: No joint swelling or deformity. EXTREMITIES: No cyanosis, clubbing, or pedal edema. NEUROLOGICAL: Gross neurological examination did not reveal any focal deficits. SKIN: No rashes. Patient Condition at Discharge: Stable Plan - Discharge Summary New Discharge Prescriptions: Continue Thiamine [Vitamin B-1] 100 mg PO DAILY busPIRone HCL [Buspar] 7.5 mg PO BID Fenofibrate,Micronized [Fenofibrate] 200 mg PO DAILY Apixaban [Eliquis Starter Pack (for VTE)] See Taper PO DIRECTED Magnesium Oxide [Magox 400] 400 mg PO DAILY Potassium Chloride ER [K-Dur 20] 20 meq PO DAILY NIFEdipine [Procardia XL] 90 mg PO DAILY Pantoprazole [Protonix] 40 mg PO BID Multivitamins, Thera [Multivitamin (formulary)] 1 tab PO DAILY hydroCHLOROthiazide 12.5 mg PO DAILY carvediloL [Coreg] 25 mg PO BID Atorvastatin [Lipitor] 40 mg PO DAILY Ergocalciferol [Vitamin D2 (1250 Mcg = 91866 Iu)] 1,250 mcg PO Q7D Acetaminophen [Tylenol Arthritis] 650 mg PO Q8H PRN PRN Reason: Pain Discontinued buPROPion XL [Wellbutrin XL] 300 mg PO DAILY Discharge Medication List Acetaminophen [Tylenol Arthritis] 650 mg PO Q8H PRN 10/14/22 [History] Apixaban [Eliquis Starter Pack (for VTE)] See Taper PO DIRECTED 10/14/22 [History] Atorvastatin [Lipitor] 40 mg PO DAILY 10/14/22 [History] Ergocalciferol [Vitamin D2 (1250 Mcg = 69072 Iu)] 1,250 mcg PO Q7D 10/14/22 [History] Fenofibrate,Micronized [Fenofibrate] 200 mg PO DAILY 10/14/22 [History] Magnesium Oxide [Magox 400] 400 mg PO DAILY 10/14/22 [History] Multivitamins, Thera [Multivitamin (formulary)] 1 tab PO DAILY 10/14/22 [History] NIFEdipine [Procardia XL] 90 mg PO DAILY 10/14/22 [History] Pantoprazole [Protonix] 40 mg PO BID 10/14/22 [History] Potassium Chloride ER [K-Dur 20] 20 meq PO DAILY 10/14/22 [History] Thiamine [Vitamin B-1] 100 mg PO DAILY 10/14/22 [History] busPIRone HCL [Buspar] 7.5 mg PO BID 10/14/22 [History] carvediloL [Coreg] 25 mg PO BID 10/14/22 [History] hydroCHLOROthiazide 12.5 mg PO DAILY 10/14/22 [History] Follow up Appointment(s)/Referral(s): None,Stated [Primary Care Provider] - 1-2 days Discharge/Stand Alone Forms: AA Meetings [facility], [facility] Resources, Outpatient Counseling, Personal Cabinet Installer Discharge Disposition: HOME SELF-CARE
== END 2022-10-16 15:00 | disposition home or self-care (01) ==
LOC: EC 14:25 → 6NMEDSUR 20:45
PROVIDERS: ADMIT Hospitalist; ATTEND Hospitalist
DX: F10.929 Alcohol use, unspecified with intoxication, unspecified (principal); Y90.8 Blood alcohol level of 240 mg/100 ml or more; R45.851 Suicidal ideations; K85.90 Acute pancreatitis without necrosis or infection, unspecified; F32.A Depression, unspecified; I10 Essential (primary) hypertension; Z86.718 Personal history of other venous thrombosis and embolism; K76.0 Fatty (change of) liver, not elsewhere classified; F41.9 Anxiety disorder, unspecified; F17.200 Nicotine dependence, unspecified, uncomplicated; Z79.899 Other long term (current) drug therapy
CPT/HCPCS: 96376 ×3; 96361; 96366 ×3; 96375 ×2; 96365; 99285; 36415; 94760 ×2; 93005; 80053 ×2; 83690; 83735; 84484 ×2; 85025; 85027; 85610; 85730; 81001; 80306; 71046; 76700; G0378 ×3; G0480; S4990 ×3; J2060 ×2; J3411; J2405 ×2; J1885 ×2; 80320

== ENCOUNTER 2023-08-15 02:06 | Observation (INO) | payer OTHER ==
[2023-08-15 03:14] LABS: Basophils % (A) 1 %; Eosinophils % (A) 0 %; HCT 42.9 % (39.0-53.0); HGB 13.7 gm/dL (13.0-17.5); Lymphocytes # (A) 1.8 k/uL (1.0-4.8); Lymphocytes % (A) 26 %; MCH 30.4 pg (25.0-35.0); MCHC 31.8 g/dL (31.0-37.0); Mean Platelet Volume 8.1; Monocytes # (A) 0.3 k/uL (0-1.0); Monocytes % (A) 4 %; Neutrophils # (A) 4.6 k/uL (1.3-7.7); Neutrophils % (A) 67 %; Platelet Count 255 k/uL (150-450); RBC 4.49 m/uL (4.30-5.90); RDW 14.1 % (11.5-15.5); WBC 6.9 k/uL (3.8-10.6)
[2023-08-15 03:17] LABS: ALT 37 U/L (4-49); AST 53 U/L (17-59); African American GFR (CKD) >90 (>60 ml/min/1.73 sqM); Albumin 4.6 g/dL (3.5-5.0); Alkaline Phosphatase 98 U/L (38-126); Anion Gap 17 mmol/L; Blood Urea Nitrogen 12 mg/dL (9-20); Calcium 8.8 mg/dL (8.4-10.2); Carbon Dioxide 19 mmol/L (22-30); Chloride 109 mmol/L (98-107); Glucose 103 mg/dL (74-99); Magnesium 1.6 mg/dL (1.6-2.3); Non-African American GFR(CKD) >90 (>60 ml/min/1.73 sqM); Potassium 4.3 mmol/L (3.5-5.1); Sodium 145 mmol/L (137-145); Total Bilirubin 0.5 mg/dL (0.2-1.3); Total Protein 8.3 g/dL (6.3-8.2)
--- NOTE | 2023-08-15 03:22 | ED ---
General Adult HPI - General Chief complaint: Alcohol Stated complaint: detox Time Seen by Provider: 08/15/23 02:19 Source: patient, EMS, RN notes reviewed, old records reviewed Mode of arrival: EMS - History of Present Illness Initial comments: 48-year-old male presenting with acute alcohol intoxication. Patient admits to alcohol consumption prior to arrival. Patient states that he wishes to detox from alcohol. He is also complaining of palpitations with history of atrial fibrillation. He states he is on Eliquis and has been compliant with his medication. He reports nausea and vomiting as well. No fever. - Related Data Home Medications Medication Instructions Recorded Confirmed Acetaminophen [Tylenol Arthritis] 650 mg PO Q8H PRN 10/14/22 10/14/22 Apixaban [Eliquis Starter Pack See Taper PO DIRECTED 10/14/22 10/14/22 (for VTE)] Atorvastatin [Lipitor] 40 mg PO DAILY 10/14/22 10/14/22 Ergocalciferol [Vitamin D2 (1250 1,250 mcg PO Q7D 10/14/22 10/14/22 Mcg = 07392 Iu)] Fenofibrate,Micronized 200 mg PO DAILY 10/14/22 10/14/22 [Fenofibrate] Magnesium Oxide [Magox 400] 400 mg PO DAILY 10/14/22 10/14/22 Multivitamins, Thera [Multivitamin 1 tab PO DAILY 10/14/22 10/14/22 (formulary)] NIFEdipine [Procardia XL] 90 mg PO DAILY 10/14/22 10/14/22 Pantoprazole [Protonix] 40 mg PO BID 10/14/22 10/14/22 Potassium Chloride ER [K-Dur 20] 20 meq PO DAILY 10/14/22 10/14/22 Thiamine [Vitamin B-1] 100 mg PO DAILY 10/14/22 10/14/22 busPIRone HCL [Buspar] 7.5 mg PO BID 10/14/22 10/14/22 carvediloL [Coreg] 25 mg PO BID 10/14/22 10/14/22 hydroCHLOROthiazide 12.5 mg PO DAILY 10/14/22 10/14/22 Allergies Allergy/AdvReac Type Severity Reaction Status Date / Time VAUGHN Inhibitors Allergy Unknown Verified 08/15/23 02:19 Review of Systems ROS Statement: Those systems with pertinent positive or pertinent negative responses have been documented in the HPI. ROS Other: All systems not noted in ROS Statement are negative. Past Medical History Past Medical History: Atrial Fibrillation, Asthma, Deep Vein Thrombosis (DVT), GERD/Reflux, GI Bleed, Hypertension Additional Past Medical History / Comment(s): left foot surgery pt states he has steel in his foot. Blood clots in arm pt is now on eliquis, states it was within the last month History of Any Multi-Drug Resistant Organisms: None Reported Past Surgical History: No Surgical Hx Reported, Orthopedic Surgery, Tonsillectomy Additional Past Surgical History / Comment(s): left foot Past Anesthesia/Blood Transfusion Reactions: No Reported Reaction Past Psychological History: Anxiety Smoking Status: Current every day smoker Past Alcohol Use History: Abuse, Daily, Heavy Past Drug Use History: None Reported General Exam General appearance: alert, appears intoxicated Head exam: Present: atraumatic, normocephalic Eye exam: Present: normal appearance, PERRL Neck exam: Present: normal inspection. Absent: tenderness Respiratory exam: Present: normal lung sounds bilaterally. Absent: respiratory distress, wheezes Cardiovascular Exam: Present: normal rhythm, tachycardia GI/Abdominal exam: Absent: distended Extremities exam: Present: normal inspection, normal capillary refill Neurological exam: Present: alert, oriented X3, CN II-XII intact. Absent: motor sensory deficit Psychiatric exam: Present: normal affect, normal mood Skin exam: Present: warm, dry, intact Course Vital Signs 08/15/23 08/15/23 08/15/23 02:10 02:24 03:24 Temperature 98.1 F Pulse Rate 126 H 108 H 130 H Respiratory 24 22 22 Rate Blood Pressure 151/108 170/83 153/93 O2 Sat by Pulse 95 96 Oximetry 08/15/23 08/15/23 04:05 04:56 Temperature Pulse Rate 109 H 112 H Respiratory 20 18 Rate Blood Pressure 143/75 118/64 O2 Sat by Pulse 96 93 L Oximetry Medical Decision Making - Medical Decision Making Was pt. sent in by a medical professional or institution (, PA, CLIENT ACCOUNT SPECIALIST, urgent care, hospital, or group home...) When possible be specific @ -No Did you speak to anyone other than the patient for history (EMS, parent, family, police, friend...)? What history was obtained from this source @ -No Did you review nursing and triage notes (agree or disagree)? Why? @ -I reviewed and agree with nursing and triage notes Were old charts reviewed (outside hosp., previous admission, EMS record, old EKG, old radiological studies, urgent care reports/EKG's, group home records)? Report findings @ -No old charts were reviewed Differential Diagnosis alcohol withdrawal, alcohol intoxication, delirium tremens EKG interpreted by me (3pts min.). @ -Sinus tachycardia rate of 119, LA interval 190, QRS duration 89, QTc [address] segment elevation. X-rays interpreted by me (1pt min.). @ -None done CT interpreted by me (1pt min.). @ -None done U/S interpreted by me (1pt. min.). @ -None done What testing was considered but not performed or refused? (CT, X-rays, U/S, labs)? Why? @ -None What meds were considered but not given or refused? Why? @ -None Did you discuss the management of the patient with other professionals (professionals i.e. , PA, CLIENT ACCOUNT SPECIALIST, lab, RT, psych nurse, administrator social welfare, generating station mechanic, teacher, court officer, wrapper caser)? Give summary @ -No Was smoking cessation discussed for >3mins.? @ -No Was critical care preformed (if so, how long)? @ -No Were there social determinants of health that impacted care today? How? (Homelessness, low income, unemployed, alcoholism, drug addiction, transportation, low edu. Level, literacy, decrease access to med. care, skilled nursing, rehab)? @ -No Was there de-escalation of care discussed even if they declined (Discuss DNR or withdrawal of care, Hospice)? DNR status @ -No What co-morbidities impacted this encounter? (DM, HTN, Smoking, COPD, CAD, Cancer, CVA, ARF, Chemo, Hep., AIDS, mental health diagnosis, sleep apnea, morbid obesity)? @Alcohol abuse, atrial fibrillation, hypertension Was patient admitted / discharged? Hospital course, mention meds given and route, prescriptions, significant lab abnormalities, going to OR and other pertinent info. @ -[48-year-old male presenting with alcohol intoxication, alcohol level is 309. Patient wishes to detox from alcohol. He will be admitted with IV fluids and benzodiazepines. Reassessed when sober. Undiagnosed new problem with uncertain prognosis? @ -No Drug Therapy requiring intensive monitoring for toxicity (Heparin, Nitro, Insulin, Cardizem)? @ -No Were any procedures done? @ -No Diagnosis/symptom? @ -Acute alcohol intoxication Acute, or Chronic, or Acute on Chronic? @Acute on chronic Uncomplicated (without systemic symptoms) or Complicated (systemic symptoms)? @ -Default Side effects of treatment? @ -No Exacerbation, Progression, or Severe Exacerbation? @ -No Poses a threat to life or bodily function? How? (Chest pain, [place], [place], pneumonia, PE, COPD, DKA, ARF, appy, cholecystitis, CVA, Diverticulitis, Homicidal, Suicid al, threat to staff... and all critical care pts) @Yes, DTs, alcohol withdrawal seizure. - Lab Data Result diagrams: 08/15/23 02:52 08/15/23 02:52 Lab Results 08/15/23 08/15/23 Range/Units 02:52 02:52 WBC 6.9 (3.8-10.6) k/uL RBC 4.49 (4.30-5.90) m/uL Hgb 13.7 (13.0-17.5) gm/dL Hct 42.9 (39.0-53.0) % MCV 95.4 D (80.0-100.0) fL MCH 30.4 (25.0-35.0) pg MCHC 31.8 (31.0-37.0) g/dL RDW 14.1 (11.5-15.5) % Plt Count 255 (150-450) k/uL MPV 8.1 Neutrophils % 67 % Lymphocytes % 26 % Monocytes % 4 % Eosinophils % 0 % Basophils % 1 % Neutrophils # 4.6 (1.3-7.7) k/uL Lymphocytes # 1.8 (1.0-4.8) k/uL Monocytes # 0.3 (0-1.0) k/uL Eosinophils # 0.0 (0-0.7) k/uL Basophils # 0.0 (0-0.2) k/uL Sodium 145 (137-145) mmol/L Potassium 4.3 (3.5-5.1) mmol/L Chloride 109 H (98-107) mmol/L Carbon Dioxide 19 L (22-30) mmol/L Anion Gap 17 mmol/L BUN 12 (9-20) mg/dL Creatinine 0.80 (0.66-1.25) mg/dL Est GFR (CKD-EPI)AfAm >90 (>60 ml/min/1.73 sqM) Est GFR (CKD-EPI)NonAf >90 (>60 ml/min/1.73 sqM) Glucose 103 H (74-99) mg/dL Calcium 8.8 (8.4-10.2) mg/dL Magnesium 1.6 (1.6-2.3) mg/dL Total Bilirubin 0.5 (0.2-1.3) mg/dL AST 53 (17-59) U/L ALT 37 (4-49) U/L Alkaline Phosphatase 98 (38-126) U/L Total Protein 8.3 H (6.3-8.2) g/dL Albumin 4.6 (3.5-5.0) g/dL Serum Alcohol 328 H* mg/dL Disposition Clinical Impression: Alcohol intoxication Disposition: ADMITTED IP TO THIS HOSP Condition: Stable Is patient prescribed a controlled substance at d/c from ED?: No Referrals: None,Stated [Primary Care Provider] - 1-2 days Time of Disposition: 05:31
[2023-08-15] MEDS: SODIUM CHLORIDE 0.9% 1,000 ML IV ONE (03:23)
[2023-08-15 03:49] LABS: MCV 95.4 fL (80.0-100.0)
[2023-08-15] MEDS ORDERED: LORazepam 2 MG/ML INJ IV PRN ×2 (03:59)
[2023-08-15 04:01] LABS: Alcohol 328 mg/dL
[2023-08-15] MEDS: ONDANSETRON 4 MG/2 ML VIAL IVP STA (04:06)
[2023-08-15] MEDS: LORazepam 2 MG/ML INJ IV STA (04:07)
[2023-08-15] MEDS: THIAMINE 100 MG/ML 2 ML VIAL IM STA (04:07)
[2023-08-15] MEDS: SODIUM CHLORIDE 0.9% 1,000 ML IV SCH (04:58)
[2023-08-15] MEDS ORDERED: NALOXONE 0.4 MG/ML 1 ML VIAL IV PRN (05:28)
[2023-08-15] MEDS: LORazepam 2 MG/ML INJ IV PRN (06:26)
[2023-08-15] MEDS ORDERED: LORazepam 1 MG/0.5 ML VIAL IV PRN ×2 (08:23)
[2023-08-15] MEDS ORDERED: LORazepam 0.5 MG TAB PO PRN (08:54)
[2023-08-15 09:04] VITALS: RESP 16
[2023-08-15] MEDS: MAGNESIUM SULFATE-D5W PMX 1 GM in DEXTROSE/WATER 1 100ML.BAG IVPB SCH (09:42)
[2023-08-15] MEDS: MULTIVITAMINS, THERA 1 EACH TAB PO SCH (09:42)
[2023-08-15] MEDS: FOLIC ACID 1 MG TAB PO SCH (09:42)
[2023-08-15] MEDS: APIXABAN 5 MG TAB PO SCH (09:42)
[2023-08-15] MEDS: LORazepam 1 MG TAB PO PRN (09:42)
[2023-08-15] MEDS: ONDANSETRON 4 MG/2 ML VIAL IVP PRN (11:17)
[2023-08-15] MEDS: HYDROcodone/APAP 5-325MG 1 EACH TAB PO PRN (12:54)
[2023-08-15] MEDS: CALCIUM CARBONATE 500 MG CHEWABLE PO PRN (12:54)
[2023-08-15] MEDS: LORazepam 1 MG/0.5 ML VIAL IV PRN (14:24)
--- NOTE | 2023-08-15 14:41 | P.HPIM ---
History of Present Illness H&P Date: 08/15/23 History of Presenting Illness: Patient is a 48-year-old male with a past medical history of hypertension, hyperlipidemia, atrial fibrillation on anticoagulation with Eliquis, nicotine dependence, and daily alcohol abuse. He presented to the emergency department with alcohol intoxication and requesting assistance with medical detox. Patient reported feeling mild nausea and tremors, denies headache, lightheadedness, dizziness, chest pain, palpitations, shortness of breath, abdominal pain or episodes of vomiting, diarrhea, or experiencing any numbness/tingling/weakness in his extremities. Patient denies recent injuries or falls. Upon arrival to our facility, patient underwent evaluation. Vital signs upon arrival show blood pressure 151/108, heart rate 126, respiratory rate 24, temp 98.1 F, and SpO2 of 95% on room air. EKG was completed showing sinus tachycardia at 119 bpm. Labs completed and reviewed. CBC unremarkable. BMP showing high anion gap metabolic acidosis with chloride of 109, bicarb 19, and anion gap of 17. Magnesium was low at 1.6 serum alcohol was elevated at 328. Patient admitted under our services to medical observation unit for alcohol intoxication and impending withdrawal. Review of systems: Pertinent positives and negatives as discussed in HPI, a complete review of systems was performed and all other systems are negative. Physical exam: Vital signs reviewed and stable. General: Nontoxic, no distress and appears stated age. Derm: Skin warm and dry, normal coloration for ethnicity. Head: Atraumatic, normocephalic and symmetric. Eyes: EOMs intact, no lid lag, and anicteric sclera Mouth: no lip lesions, mucus membranes moist Cardiovascular: regular rate and rhythm with normal S1S2, no murmur, positive posterior tibial pulses bilaterally, and cap refill < 2 seconds. Lungs: Respirations even, regular, and unlabored on room air. Lungs CTA bilaterally, no rhonchi, no rales, no wheezing, and no accessory muscle usage. Abdominal: soft, nontender to palpation, no guarding, no appreciable organomegaly Ext: ROM intact. No gross muscle atrophy, no edema, no contractures Neuro: Speech clear, face symmetrical and CN II-XII grossly intact with no noted focal neuro deficits Psych: Alert and oriented to person, place, time, and situation. Appropriate and pleasant affect. Assessment and Plan of Care: Alcohol intoxication in active alcoholic -Order placed for monitoring of CIWA scores and patient to be medicated with Ativan 0.5 mg every 4 hours as needed for CIWA score of 4-5, Ativan 1 mg every 4 hours for CIWA score of 6-7, Ativan 2 mg every 3 hours CIWA score of 8-9, and Ativan 2 mg every 2 hours forr CIWA score of 10 or greater. -Continuous IV hydration. -Thiamine 100 mg daily, Multivitamin daily, and folate 1 mg daily -Seizure, fall, aspiration, and elopement precautions in place. -Continued close monitoring of electrolytes and replace as needed. -Telemetry monitoring. Paroxysmal atrial fibrillation -Currently maintaining sinus mechanism. Patient to continue with Eliquis 5 mg twice daily, amiodarone 200 mg daily, Procardia 30 mg daily, and metoprolol 50 mg daily. Hypertension -Monitor vital signs and continue daily medication regimen with hydrochlorothiazide 25 mg daily, metoprolol 50 mg daily. Hyperlipidemia -Continue daily medication regimen with atorvastatin 40 mg daily. Data and imaging reviewed: As stated above in HPI CODE STATUS: Full code DVT prophylaxis: Eliquis Anticipated discharge date: Medical course to determine Anticipated discharge place: Home versus rehab Patient was seen independently by Nurse Practitioner. This document was prepared using [email or web address] dictation software. Please allow for errors in director utilization management while rare they do occur. I reviewed the documentation as provided by the JOHN above, who is the original author of this note. I agree with the documented assessment and plan, with the following changes: none Past Medical History Past Medical History: Atrial Fibrillation, Asthma, Deep Vein Thrombosis (DVT), GERD/Reflux, GI Bleed, Hypertension Additional Past Medical History / Comment(s): left foot surgery pt states he has steel in his foot. Blood clots in arm pt is now on eliquis, states it was within the last month History of Any Multi-Drug Resistant Organisms: None Reported Past Surgical History: No Surgical Hx Reported, Orthopedic Surgery, Tonsillectomy Additional Past Surgical History / Comment(s): left foot Past Anesthesia/Blood Transfusion Reactions: No Reported Reaction Past Psychological History: Anxiety Smoking Status: Current every day smoker Past Alcohol Use History: Abuse, Daily, Heavy Past Drug Use History: None Reported Medications and Allergies Home Medications Medication Instructions Recorded Confirmed Type Acetaminophen [Tylenol Arthritis] 650 mg PO Q8H PRN 10/14/22 08/15/23 History Atorvastatin [Lipitor] 40 mg PO DAILY 10/14/22 08/15/23 History Fenofibrate,Micronized 200 mg PO DAILY 10/14/22 08/15/23 History [Fenofibrate] Magnesium Oxide [Magox 400] 400 mg PO BID 10/14/22 08/15/23 History Multivitamins, Thera [Multivitamin 1 tab PO DAILY 10/14/22 08/15/23 History (formulary)] Thiamine [Vitamin B-1] 100 mg PO DAILY 10/14/22 08/15/23 History Amiodarone [Cordarone] 200 mg PO DAILY 08/15/23 08/15/23 History Apixaban [Eliquis] 5 mg PO BID 08/15/23 08/15/23 History Cholecalciferol (Vitamin D3) 1,250 mcg PO DAILY 08/15/23 08/15/23 History [Vitamin D3 (1250 Mcg = 50,000 Iu)] Folic Acid 2 mg PO DAILY 08/15/23 08/15/23 History Gabapentin [Neurontin] 300 mg PO TID 08/15/23 08/15/23 History Lidocaine [Aspercreme Patch] 1 patch TRANSDERM DAILY PRN 08/15/23 08/15/23 History Metoprolol Succinate (ER) [Toprol 50 mg PO DAILY 08/15/23 08/15/23 History XL] NIFEdipine XL [Procardia XL] 30 mg PO DAILY 08/15/23 08/15/23 History Pantoprazole Sodium [Protonix] 20 mg PO BID 08/15/23 08/15/23 History Venlafaxine HCl [Effexor XR] 75 mg PO DAILY 08/15/23 08/15/23 History busPIRone HCL 15 mg PO BID 08/15/23 08/15/23 History hydroCHLOROthiazide [Hydrodiuril] 25 mg PO DAILY 08/15/23 08/15/23 History lidocaine HCL [Asperflex] 1 applic TOPICAL BID PRN 08/15/23 08/15/23 History methocarbamoL [Robaxin-750] 750 mg PO Q8H PRN 08/15/23 08/15/23 History Allergies Allergy/AdvReac Type Severity Reaction Status Date / Time VAUGHN Inhibitors Allergy Unknown Verified 08/15/23 02:19 Physical Exam Vitals: Vital Signs Temp Pulse Pulse Resp BP BP Pulse Ox 08/15/23 07:00 98.2 F 125 H 109 H 16 143/84 146/82 94 L 08/15/23 06:27 97.8 F 103 H 18 143/90 97 08/15/23 05:41 123 H 20 129/80 94 L 08/15/23 04:56 112 H 18 118/64 93 L 08/15/23 04:05 109 H 20 143/75 96 08/15/23 03:24 130 H 22 153/93 08/15/23 02:24 108 H 22 170/83 96 08/15/23 02:10 98.1 F 126 H 24 151/108 95 Intake and Output 08/14/23 08/15/23 08/15/23 22:59 06:59 14:59 Other: Weight 122.47 kg Results CBC & Chem 7: 08/16/23 06:24 08/16/23 06:24 Labs: Abnormal Lab Results - Last 24 Hours (Table) 08/15/23 Range/Units 02:52 Chloride 109 H (98-107) mmol/L Carbon Dioxide 19 L (22-30) mmol/L Glucose 103 H (74-99) mg/dL Total Protein 8.3 H (6.3-8.2) g/dL Serum Alcohol 328 H* mg/dL
[2023-08-15] MEDS: VENLAFAXINE HCL ER 75 MG CAP PO SCH (15:33)
[2023-08-15] MEDS: hydroCHLOROthiazide 25 MG TAB PO SCH (15:33)
[2023-08-15] MEDS: FENOFIBRATE 160 MG TAB PO SCH (15:33)
[2023-08-15] MEDS: NIFEdipine XL 30 MG TAB.ER.24 PO SCH (15:34)
[2023-08-15] MEDS: ATORVASTATIN 40 MG TAB PO SCH (15:34)
[2023-08-15] MEDS: METOPROLOL SUCCINATE (ER) 50 MG TAB.ER.24H PO SCH (15:34)
[2023-08-15] MEDS: GABAPENTIN 300 MG CAP PO SCH (15:58)
[2023-08-15] MEDS: AMIODARONE 200 MG TAB PO SCH (15:58)
[2023-08-15] MEDS: busPIRone HCl 5 MG TAB PO SCH (21:22)
[2023-08-15] MEDS: PANTOPRAZOLE 40 MG TABLET PO SCH (21:22)
[2023-08-16] MEDS: THIAMINE 100 MG TAB PO SCH (09:09)
[2023-08-16 10:43] LABS: HCT 35.6 % (39.6-50.0); HGB 11.8 g/dL (13.0-17.0); MCH 30.6 pg (27.0-32.0); MCHC 33.1 g/dL (32.0-37.0); MCV 92.2 FL (80.0-97.0); Mean Platelet Volume 11.1 FL (9.5-12.2); NRBC Per 100 WBC 0 X 10*3/uL (0.00-0.01); Platelet Count 176 X 10*3/uL (140-440); RBC 3.86 X 10*6/uL (4.40-5.60); RDW 13.9 % (11.5-14.5); WBC 4.06 X 10*3/uL (4.50-10.00)
[2023-08-16 11:00] LABS: BUN/Creat Ratio 7.67 Ratio (12.00-20.00); Blood Urea Nitrogen 6.9 mg/dL (9.0-27.0); Carbon Dioxide 24.6 mmol/L (21.6-31.8); Chloride 97 mmol/L (96-109); Glucose 104 mg/dL (70-110); Magnesium 1.5 mg/dL (1.5-2.4); Potassium 3.5 mmol/L (3.5-5.5); Sodium 136 mmol/L (135-145)
[2023-08-16 11:01] LABS: ALT 28 U/L (10-49); AST 41 U/L (14-35); Albumin 4.2 g/dL (3.8-4.9); Albumin/Globulin Ratio 1.31 Ratio (1.60-3.17); Alkaline Phosphatase 79 U/L (41-126); Globulin 3.2 g/dL (1.6-3.3); Total Protein 7.4 g/dL (6.2-8.2)
[2023-08-16 15:48] VITALS: BP 113/89; PULSE 88; TEMP 98.4
--- NOTE | 2023-08-16 16:57 | P.DS ---
Providers Date of admission: 08/15/23 05:28 Expected date of discharge: 08/16/23 Attending physician: Lionel Austin MD Primary care physician: Physician Nonstaff Hospital Course: Discharge Diagnosis: Alcohol intoxication in active alcoholic Paroxysmal atrial fibrillation. Currently maintaining sinus mechanism. Patient to continue with Eliquis 5 mg twice daily, amiodarone 200 mg daily, Procardia 30 mg daily, and metoprolol 50 mg daily. Hypertension. Monitor vital signs and continue daily medication regimen with hydrochlorothiazide 25 mg daily, metoprolol 50 mg daily. Hyperlipidemia. Continue daily medication regimen with atorvastatin 40 mg daily Hospital Course: Patient is a 48-year-old male with a past medical history of hypertension, hyperlipidemia, atrial fibrillation on anticoagulation with Eliquis, nicotine dependence, and daily alcohol abuse. He presented to the emergency department with alcohol intoxication and requesting assistance with medical detox. Patient reported feeling mild nausea and tremors, denies headache, lightheadedness, dizziness, chest pain, palpitations, shortness of breath, abdominal pain or episodes of vomiting, diarrhea, or experiencing any numbness/tingling/weakness in his extremities. Patient denies recent injuries or falls. Upon arrival to our facility, patient underwent evaluation. Vital signs upon arrival show blood pressure 151/108, heart rate 126, respiratory rate 24, temp 98.1 F, and SpO2 of 95% on room air. EKG was completed showing sinus tachycardia at 119 bpm. Labs completed and reviewed. CBC unremarkable. BMP showing high anion gap metabolic acidosis with chloride of 109, bicarb 19, and anion gap of 17. Magnesium was low at 1.6 serum alcohol was elevated at 328. Patient admitted under our services to medical observation unit for alcohol intoxication and impending withdrawal. Patient is clinically sober. His CIWA has not been over his course through the entire day. Patient declines wanting to go to rehab stating he will follow-up with [facility] for day treatment options. Patient medically stable at this time and is cleared for discharge home. Patient strongly encouraged to refrain from any and all alcohol use. Physical exam: Vital signs reviewed and stable. General: Nontoxic, no distress and appears stated age. Derm: Skin warm and dry, normal coloration for ethnicity. Head: Atraumatic, normocephalic and symmetric. Eyes: EOMs intact, no lid lag, and anicteric sclera Mouth: no lip lesions, mucus membranes moist Cardiovascular: regular rate and rhythm with normal S1S2, no murmur, positive posterior tibial pulses bilaterally, and cap refill < 2 seconds. Lungs: Respirations even, regular, and unlabored on room air. Lungs CTA bilaterally, no rhonchi, no rales, no wheezing, and no accessory muscle usage. Abdominal: soft, nontender to palpation, no guarding, no appreciable organomegaly Ext: ROM intact. No gross muscle atrophy, no edema, no contractures Neuro: Speech clear, face symmetrical and CN II-XII grossly intact with no noted focal neuro deficits Psych: Alert and oriented to person, place, time, and situation. Appropriate and pleasant affect. A total of 31 minutes of time were spent preparing this complex discharge summary. Pt was discharged on 08/16/2023 at 4:50 PM. Patient was seen independently by Nurse Practitioner. This document was prepared using [employer] dictation software. Please allow for errors in cat operator while rare they do occur. . I reviewed the documentation as provided by the JOHN above, who is the original author of this note. I agree with the documented assessment and plan, with the following changes: none Patient Condition at Discharge: Stable Plan - Discharge Summary Discharge Rx Participant: No New Discharge Prescriptions: Continue Thiamine [Vitamin B-1] 100 mg PO DAILY Fenofibrate,Micronized [Fenofibrate] 200 mg PO DAILY Magnesium Oxide [Magox 400] 400 mg PO BID busPIRone HCL 15 mg PO BID Apixaban [Eliquis] 5 mg PO BID methocarbamoL [Robaxin-750] 750 mg PO Q8H PRN PRN Reason: Pain hydroCHLOROthiazide [Hydrodiuril] 25 mg PO DAILY Gabapentin [Neurontin] 300 mg PO TID Cholecalciferol (Vitamin D3) [Vitamin D3 (1250 Mcg = 50,000 Iu)] 1,250 mcg PO DAILY Pantoprazole Sodium [Protonix] 20 mg PO BID Metoprolol Succinate (ER) [Toprol XL] 50 mg PO DAILY Multivitamins, Thera [Multivitamin (formulary)] 1 tab PO DAILY Atorvastatin [Lipitor] 40 mg PO DAILY Acetaminophen [Tylenol Arthritis] 650 mg PO Q8H PRN PRN Reason: Pain Lidocaine [Aspercreme Patch] 1 patch TRANSDERM DAILY PRN PRN Reason: Pain Folic Acid 2 mg PO DAILY Venlafaxine HCl [Effexor XR] 75 mg PO DAILY Amiodarone [Cordarone] 200 mg PO DAILY NIFEdipine XL [Procardia XL] 30 mg PO DAILY lidocaine HCL [Asperflex] 1 applic TOPICAL BID PRN PRN Reason: Pain Discharge Medication List Acetaminophen [Tylenol Arthritis] 650 mg PO Q8H PRN 10/14/22 [History] Atorvastatin [Lipitor] 40 mg PO DAILY 10/14/22 [History] Fenofibrate,Micronized [Fenofibrate] 200 mg PO DAILY 10/14/22 [History] Magnesium Oxide [Magox 400] 400 mg PO BID 10/14/22 [History] Multivitamins, Thera [Multivitamin (formulary)] 1 tab PO DAILY 10/14/22 [History] Thiamine [Vitamin B-1] 100 mg PO DAILY 10/14/22 [History] Amiodarone [Cordarone] 200 mg PO DAILY 08/15/23 [History] Apixaban [Eliquis] 5 mg PO BID 08/15/23 [History] Cholecalciferol (Vitamin D3) [Vitamin D3 (1250 Mcg = 50,000 Iu)] 1,250 mcg PO DAILY 08/15/23 [History] Folic Acid 2 mg PO DAILY 08/15/23 [History] Gabapentin [Neurontin] 300 mg PO TID 08/15/23 [History] Lidocaine [Aspercreme Patch] 1 patch TRANSDERM DAILY PRN 08/15/23 [History] Metoprolol Succinate (ER) [Toprol XL] 50 mg PO DAILY 08/15/23 [History] NIFEdipine XL [Procardia XL] 30 mg PO DAILY 08/15/23 [History] Pantoprazole Sodium [Protonix] 20 mg PO BID 08/15/23 [History] Venlafaxine HCl [Effexor XR] 75 mg PO DAILY 08/15/23 [History] busPIRone HCL 15 mg PO BID 08/15/23 [History] hydroCHLOROthiazide [Hydrodiuril] 25 mg PO DAILY 08/15/23 [History] lidocaine HCL [Asperflex] 1 applic TOPICAL BID PRN 08/15/23 [History] methocarbamoL [Robaxin-750] 750 mg PO Q8H PRN 08/15/23 [History] Follow up Appointment(s)/Referral(s): None,Stated [REFERRING] - 1-2 days Patient Instructions/Handouts: Abuse of Alcohol (DC) Activity/Diet/Wound Care/Special Instructions: Activity: As tolerated. Take breaks as needed. Diet: Heart healthy and carb consistent diet. Avoid salts, or foods with hidden salts such as canned or boxed foods and frozen dinners. Extra salt makes your heart work harder and traps the fluid in your body for longer. Special Instructions: Take all of your medications as directed and remember to keep all of your doctor's appointments and follow-up as needed. Strongly recommend cessation of any and all alcohol use. Thank you for allowing us to participate in your care, it was truly a pleasure having you for our patient!!! Discharge/Stand Alone Forms: Outpatient Counseling, Inp Substance Abuse Facilities Discharge Disposition: HOME SELF-CARE
[2023-08-16] MEDS: MAGNESIUM OXIDE 400 MG TAB PO STA (17:16)
== END 2023-08-16 18:25 | disposition home or self-care (01) ==
LOC: EC 02:06 → 6NMEDSUR 05:28
PROVIDERS: ADMIT Internal Medicine; ATTEND Internal Medicine
DX: F10.229 Alcohol dependence with intoxication, unspecified (principal); F10.239 Alcohol dependence with withdrawal, unspecified; E83.42 Hypomagnesemia; E87.20 Acidosis, unspecified; I48.0 Paroxysmal atrial fibrillation; I10 Essential (primary) hypertension; E78.5 Hyperlipidemia, unspecified; F17.200 Nicotine dependence, unspecified, uncomplicated; Y90.8 Blood alcohol level of 240 mg/100 ml or more; Z79.01 Long term (current) use of anticoagulants; Z79.899 Other long term (current) drug therapy; Z88.8 Allergy status to other drugs, medicaments and biological substances
CPT/HCPCS: 96376 ×2; 96361 ×3; 96365; 96366; 96372; 96375; 99285; 36415; 93005; 80053 ×2; 83735 ×2; 85025; 85027; G0378 ×2; G0480; J2060; J3411; J2405; J3475; 80320

== ENCOUNTER 2023-08-21 06:24 | Observation (INO) | payer OTHER ==
--- NOTE | 2023-08-21 06:39 | ED ---
Chest Pain HPI - General Chief Complaint: Chest Pain Stated Complaint: Chest Pain Time Seen by Provider: 08/21/23 06:30 Source: patient, EMS, RN notes reviewed Mode of arrival: EMS Limitations: altered mental status - History of Present Illness Initial Comments: This is a 48-year-old male who presents to the emergency department for chest pain and shortness of breath. States that it started 3 to 4 days ago. Pain is described as left-sided and a pressure like sensation. Reports a history of atrial fibrillation but no history of coronary artery disease. He has been to several other hospitals within the last week for the chest pain. He has been to [facility] and [facility]. He cannot recall the name of the other facility he was at. States that he has been admitted each time and discharged home. Patient is notably intoxicated on arrival and history is difficult to obtain. He is also very uncooperative with answering questions and a poor historian given his intoxicated state. He admits to having a fifth of liquor yesterday, however he is not admitting to anything more recent than this. He was given Zofran and nitroglycerin by EMS en route with no relief in symptoms. He does also admit to abdominal pain. MD Complaint: chest pain - Related Data Home Medications Medication Instructions Recorded Confirmed Acetaminophen [Tylenol Arthritis] 650 mg PO Q8H PRN 10/14/22 08/21/23 Atorvastatin [Lipitor] 40 mg PO DAILY 10/14/22 08/21/23 Fenofibrate,Micronized 200 mg PO DAILY 10/14/22 08/21/23 [Fenofibrate] Magnesium Oxide [Magox 400] 400 mg PO BID 10/14/22 08/21/23 Multivitamins, Thera [Multivitamin 1 tab PO DAILY 10/14/22 08/21/23 (formulary)] Thiamine [Vitamin B-1] 100 mg PO DAILY 10/14/22 08/21/23 Amiodarone [Cordarone] 200 mg PO DAILY 08/15/23 08/21/23 Apixaban [Eliquis] 5 mg PO BID 08/15/23 08/21/23 Folic Acid 2 mg PO DAILY 08/15/23 08/21/23 Gabapentin [Neurontin] 300 mg PO TID 08/15/23 08/21/23 Lidocaine [Aspercreme Patch] 1 patch TRANSDERM DAILY PRN 08/15/23 08/21/23 Metoprolol Succinate (ER) [Toprol 50 mg PO DAILY 08/15/23 08/21/23 XL] NIFEdipine XL [Procardia XL] 30 mg PO DAILY 08/15/23 08/21/23 Pantoprazole Sodium [Protonix] 20 mg PO BID 08/15/23 08/21/23 Venlafaxine HCl [Effexor XR] 75 mg PO DAILY 08/15/23 08/21/23 busPIRone HCL 15 mg PO BID 08/15/23 08/21/23 hydroCHLOROthiazide [Hydrodiuril] 25 mg PO DAILY 08/15/23 08/21/23 lidocaine HCL [Asperflex] 1 applic TOPICAL BID PRN 08/15/23 08/21/23 methocarbamoL [Robaxin-750] 750 mg PO Q8H PRN 08/15/23 08/21/23 Cholecalciferol [Vitamin D3 (25 125 mcg PO DAILY 08/21/23 08/21/23 Mcg = 1000 Iu)] Allergies Allergy/AdvReac Type Severity Reaction Status Date / Time VAUGHN Inhibitors Allergy Unknown Verified 08/21/23 11:38 Review of Systems ROS Statement: Those systems with pertinent positive or pertinent negative responses have been documented in the HPI. ROS Other: All systems not noted in ROS Statement are negative. Past Medical History Past Medical History: Atrial Fibrillation, Asthma, Deep Vein Thrombosis (DVT), GERD/Reflux, GI Bleed, Hypertension Additional Past Medical History / Comment(s): left foot surgery pt states he has steel in his foot. Blood clots in arm pt is now on eliquis, states it was within the last month History of Any Multi-Drug Resistant Organisms: None Reported Past Surgical History: No Surgical Hx Reported, Orthopedic Surgery, Tonsillectomy Additional Past Surgical History / Comment(s): left foot Past Anesthesia/Blood Transfusion Reactions: No Reported Reaction Past Psychological History: Anxiety Smoking Status: Current every day smoker Past Alcohol Use History: Abuse, Daily, Heavy Past Drug Use History: None Reported General Exam Limitations: altered mental status General appearance: alert, appears intoxicated Head exam: Present: atraumatic, normocephalic, normal inspection Respiratory exam: Present: normal lung sounds bilaterally. Absent: respiratory distress, wheezes, rales, rhonchi, stridor Cardiovascular Exam: Present: normal rhythm, tachycardia GI/Abdominal exam: Present: soft, tenderness (Epigastric), normal bowel sounds. Absent: distended Neurological exam: Present: alert, oriented X3, CN II-XII intact Psychiatric exam: Present: normal affect, normal mood Skin exam: Present: warm, dry, intact, normal color. Absent: rash Course Vital Signs 08/21/23 08/21/23 08/21/23 06:25 08:35 08:36 Temperature 98.2 F 98.9 F Pulse Rate 116 H 108 H Respiratory 18 20 Rate Blood Pressure 140/99 155/88 O2 Sat by Pulse 96 90 L 95 Oximetry 08/21/23 08/21/23 08/21/23 09:50 11:05 11:25 Temperature 98.2 F Pulse Rate 112 H 113 H 105 H Respiratory 17 20 19 Rate Blood Pressure 117/93 138/97 O2 Sat by Pulse 93 L 95 97 Oximetry 08/21/23 08/21/23 08/21/23 12:13 13:05 14:00 Temperature 98.0 F Pulse Rate 103 H 104 H 98 Respiratory 22 18 20 Rate Blood Pressure 151/99 140/80 114/80 O2 Sat by Pulse 94 L 96 92 L Oximetry 08/21/23 08/21/23 08/21/23 15:05 16:03 17:07 Temperature 98.8 F Pulse Rate 99 91 115 H Respiratory 22 22 20 Rate Blood Pressure 129/87 126/85 O2 Sat by Pulse 96 97 95 Oximetry Chest Pain MDM - MDM This is a 48 year old male who presents to the emergency department for chest pain. Was pt. sent in by a medical professional or institution? @ -No Did you speak to anyone other than the patient for history? @ -EMS provided the information about alcohol intoxication and the patient receiving nitroglycerin and zofran. Did you review nursing and triage notes? @ -I disagree with the aspect of patient being at this facility for chest pain several times. He has been here for alcohol intoxication in the past but not chest pain. Were old charts reviewed? @ -No Differential Diagnosis? @ -Differential Chest Pain: Stable Angina, Unstable Angina, STEMI, NSTEMI Aortic Dissection, Pneumothorax, Musculoskeletal, Esophageal Spasm GERD, Cholecystitis, Pancreatitis, Zoster, this is not meant to be an all-inclusive list. EKG interpreted by me (3pts min.)? @ -EKG interpreted by me demonstrating the following: Sinus tachycardia. Ventricular rate 110 bpm, TX interval 180 ms, QRS duration 97 ms, QTc 426 ms. X-rays interpreted by me (1pt min.)? @ -Chest x-ray obtained, my interpretation identifies no localized consolidations or infiltrates. CT interpreted by me (1pt min.)? @ -CTA of the chest obtained. My interpretation identifies no evidence of a pulmonary embolus. U/S interpreted by me (1pt. min.)? @ -Gallbladder US obtained. My interpretation identifies no evidence of cholelithiasis. What testing was considered but not performed? (CT, X-rays, U/S, labs)? Why? @ -None What meds were considered but not given? Why? @ -None Did you discuss the management of the patient with other professionals? @ -Yes, Dr. Gunter, who accepts the patient for admission. Did you reconcile home meds? @ -Yes Was smoking cessation discussed for >3mins.? @ -I discussed smoking cessation for greater than 3 minutes. The risk of smoking were discussed with the patient including but not limited to risks of cancer, stroke, coronary artery disease and COPD. Also discussed with patient were multiple methods of quitting smoking. Lastly we discussed the financial cost of smoking. Was critical care preformed (if so, how long)? @ -No Were there social determinants of health that impacted care today? How? (Homelessness, low income, unemployed, alcoholism, drug addiction, transportation, low edu. Level, literacy, decrease access to med. care, halfway, rehab)? @ -Alcoholism, contributing to patient being uncooperative and not giving a clear history. It is also contributing to worsening of overall health status. Was there de-escalation of care discussed even if they declined? (Discuss DNR or withdrawal of care, Hospice)? @ -No What co-morbidities impacted this encounter? (DM, HTN, Smoking, COPD, CAD, Cancer, CVA, Hep., AIDS, mental health diagnosis, sleep apnea, morbid obesity)? @ -A-fib, smoking, alcoholism, asthma, HTN, DVT Was patient admitted / discharged? @ -Admitted. Lab work demonstrates a critically elevated alcohol level of 367. Lipase moderately elevated at 543. Troponin negative. Magnesium slightly low at 1.5. D-dimer elevated at 2.99. Chest x-ray reveals no acute process. Patient did have notable tenderness in the right upper quadrant and epigastric region, and we subsequently proceeded with a gallbladder ultrasound. This revealed no acute process. Given the patient's symptoms and elevated D-dimer, CTA of the chest was obtained. This revealed no evidence of a pulmonary embolus or other acute process. 1 g of magnesium sulfate was administered along with IV fluids, Toradol, and Zofran for symptomatic management. Nursing staff advised that patient was starting to exhibit withdrawal symptoms and [facility] protocol was init iated. ER certified legal secretary specialist did reach out to [facility] for the patient's records given that he states that he was there within the last week for chest pain. However, they did not have any documented record of him being there since April. They believe that he may have been there 1 to 2 months ago, however due to computer issues they were unable to send over these records. Patient admitted to medicine for alcohol intoxication and chest pain. Undiagnosed new problem with uncertain prognosis? @ -None Drug Therapy requiring intensive monitoring for toxicity (Heparin, Nitro, Insulin, Cardizem)? @ -None Were any procedures done? @ -None Diagnosis/symptom? @ -Alcohol intoxication, chest pain Acute, or Chronic, or Acute on Chronic? @ -Acute Uncomplicated (without systemic symptoms) or Complicated (systemic symptoms)? @ -Complicated Side effects of treatment? @ -None Exacerbation, Progression, or Severe Exacerbation] @ -Not applicable Poses a threat to life or bodily function? @ -Yes, chest pain can be the result of ACS which can lead to . This case was discussed in detail with the attending ED physician, Dr. Johnson. Presentation, findings, and treatment plan discussed in detail as well. Disposition Clinical Impression: Nicotine dependence, Alcohol intoxication, Chest pain Disposition: ADMITTED IP TO THIS [facility] Time of Disposition: 11:22
[2023-08-21] MEDS: SODIUM CHLORIDE 0.9% 1,000 ML IV STA (06:46)
[2023-08-21] MEDS: KETOROLAC 15 MG/ML 1 ML VIAL IVP STA (06:47)
[2023-08-21] MEDS: FAMOTIDINE 20 MG/2 ML VIAL IV STA (06:48)
[2023-08-21] MEDS: ONDANSETRON 4 MG/2 ML VIAL IVP STA (06:48)
[2023-08-21 07:04] LABS: Basophils % (A) 0 %; Eosinophils # (A) 0.1 k/uL (0-0.7); Eosinophils % (A) 1 %; HCT 45.1 % (39.0-53.0); HGB 14.6 gm/dL (13.0-17.5); Lymphocytes # (A) 1.8 k/uL (1.0-4.8); Lymphocytes % (A) 44 %; MCH 30.8 pg (25.0-35.0); MCHC 32.4 g/dL (31.0-37.0); MCV 94.8 fL (80.0-100.0); Mean Platelet Volume 8.7; Monocytes # (A) 0.3 k/uL (0-1.0); Monocytes % (A) 6 %; Neutrophils # (A) 1.8 k/uL (1.3-7.7); Neutrophils % (A) 46 %; RBC 4.75 m/uL (4.30-5.90); RDW 14.7 % (11.5-15.5)
[2023-08-21 07:20] LABS: INR 0.9 (<1.2); Partial Thromboplastin Time 23.3 sec (22.0-30.0); Prothrombin Time 10.5 sec (10.0-12.5)
[2023-08-21 07:22] LABS: ALT 80 U/L (4-49); AST 112 U/L (17-59); African American GFR (CKD) >90 (>60 ml/min/1.73 sqM); Albumin 4.7 g/dL (3.5-5.0); Alkaline Phosphatase 104 U/L (38-126); Amylase 75 U/L (30-110); Anion Gap 16 mmol/L; Blood Urea Nitrogen 10 mg/dL (9-20); Calcium 8.6 mg/dL (8.4-10.2); Carbon Dioxide 26 mmol/L (22-30); Chloride 105 mmol/L (98-107); Glucose 112 mg/dL (74-99); Lipase 543 U/L (23-300); Magnesium 1.5 mg/dL (1.6-2.3); Non-African American GFR(CKD) >90 (>60 ml/min/1.73 sqM); Potassium 3.9 mmol/L (3.5-5.1); Sodium 147 mmol/L (137-145); Total Bilirubin 0.6 mg/dL (0.2-1.3); Total Protein 8.8 g/dL (6.3-8.2)
[2023-08-21 07:42] LABS: Alcohol 367 mg/dL
--- NOTE | 2023-08-21 07:48 | XR ---
EXAMINATION TYPE: XR chest 2V DATE OF EXAM: 08/21/2023 COMPARISON: Chest x-ray October 14, 2022 HISTORY: Chest pain TECHNIQUE: Frontal and lateral views of the chest are obtained. FINDINGS: There is no focal air space opacity, pleural effusion, or pneumothorax seen. The cardiac silhouette size is stable and within normal limits. The osseous structures are intact. IMPRESSION: No acute process. No significant change from prior.
[2023-08-21] MEDS: MAGNESIUM SULFATE-D5W PMX 1 GM in DEXTROSE/WATER 1 100ML.BAG IVPB ONE (08:34)
--- NOTE | 2023-08-21 08:59 | US ---
EXAMINATION TYPE: US gallbladder DATE OF EXAM: 08/21/2023 COMPARISON: US 10/16/2022 CLINICAL INDICATION: Male, 48 years old with history of Epigastric pain, nausea/vomiting; Pain, nause a, vomiting TECHNIQUE: Multiple sonographic images of the right upper quadrant are obtained. FINDINGS: EXAM MEASUREMENTS: Liver Length: 19.3 cm Gallbladder Wall: 0.19 cm CBD: Obscured Right Kidney: 11.7 x 6.0 x 5.8 cm DATA GOVERNANCE ANALYST NOTES: Exam is limited due to gas and patient body habitus Pancreas: Not well seen Liver: *Appears enlarged and coarse/heterogeneous with increased echogenicity. Gallbladder: Appears anechoic Evidence for sonographic Dan's sign: No CBD: Obscured Right Kidney: No hydronephrosis or masses seen IMPRESSION: 1. Limited study. The CBD is obscured and the pancreas is not well seen. 2. Hepatomegaly and hepatic steatosis. 3. No visualized shadowing gallstones or evidence of cholecystitis.
[2023-08-21 09:22] LABS: Platelet Count 114 k/uL (150-450); RBC Morphology Normal
--- NOTE | 2023-08-21 10:40 | CT ---
EXAMINATION TYPE: CT chest angio for PE CT DLP: 566.5 mGycm, Automated exposure control for dose reduction was used. DATE OF EXAM: 08/21/2023 9:23 AM COMPARISON: CLINICAL INDICATION:Male, 48 years old with history of Chest pain, CAROLA, elevated d-dimer; Chest pain, Elevated D-dimer, CAROLA TECHNIQUE/CONTRAST: CTA scan of the thorax is performed without and with IV Contrast, patient injected with 100 ml mL of Isovue 370, MIP images are created and reviewed these are created on a separate workstation.. FINDINGS: There is suboptimal contrast bolus timing. PULMONARY ARTERIES: There is no evidence for a central filling defect within the pulmonary vasculatur e to suggest acute central or saddle pulmonary embolism. Limited evaluation of the segmental and subs egmental branches. Pulmonary trunk is normal in size. Trunk measures 2.5 CM. AORTA: Minimal calcific atherosclerotic disease. Ascending aorta is 2.7 CM, descending is 2.7 CM. No dissection. HEART: Mild cardiomegaly. No significant coronary artery calcification. No appreciable pericardial e ffusion. LOWER NECK: No significant findings. MEDIASTINUM: No enlarged nodes by CT size criteria. SOFT TISSUES/AXILLA: Moderate bilateral gynecomastia changes. No axillary adenopathy. LUNGS/ PLEURA: Mild biapical emphysema. The lung parenchyma appears unremarkable. AIRWAY: Central airways are patent. MUSCULOSKELETAL: No acute osseous abnormality. UPPER ABDOMEN: No significant findings. Severe hepatic steatosis. IMPRESSION: 1. Limited study shows no evidence of pulmonary embolism. 2. No other acute chest process demonstrated.
[2023-08-21] MEDS ORDERED: LORazepam 2 MG/ML INJ IV PRN (11:02)
[2023-08-21] MEDS: LORazepam 2 MG/ML INJ IV PRN ×3 (11:17→17:10)
[2023-08-21] MEDS: MULTIVITAMINS, THERA 1 EACH TAB PO SCH (11:19)
[2023-08-21] MEDS: FOLIC ACID 1 MG TAB PO SCH (11:19)
[2023-08-21] MEDS: THIAMINE 100 MG/ML 2 ML VIAL IM STA (11:22)
[2023-08-21] MEDS ORDERED: KETOROLAC 15 MG/ML 1 ML VIAL IVP PRN (11:23)
[2023-08-21] MEDS ORDERED: NALOXONE 0.4 MG/ML 1 ML VIAL IV PRN (11:23)
[2023-08-21] MEDS ORDERED: ONDANSETRON 4 MG/2 ML VIAL IVP PRN (11:23)
[2023-08-21 11:38] LABS: Amorphous Sediment,Urine Rare /hpf; Appearance,Urine Cloudy (Clear); Bilirubin,Urine Negative (Negative); Blood,Urine Trace (Negative); Color,Urine Yellow; Glucose,Urine (UA) Negative (Negative); Hyaline Casts,Urine 50 /lpf (0-2); Ketones,Urine Negative (Negative); Leukocyte Esterase,Urine Negative (Negative); Mucus,Urine Many /hpf; Nitrite,Urine Negative (Negative); Protein,Urine 2+ (Negative); RBC,Urine 1 /hpf (0-5); Specific Gravity,Urine 1.022 (1.001-1.035); Squamous Epithelial Cell,Urine <1 /hpf (0-4); Urobilinogen,Urine <2.0 mg/dL (<2.0); WBC,Urine 2 /hpf (0-5)
[2023-08-21 11:49] LABS: Amphetamine Screen,Urine Not Detected (NotDetected); Barbiturate Screen,Urine Not Detected (NotDetected); Benzodiazepines Screen,Urine Detected (NotDetected); Cocaine Screen,Urine Not Detected (NotDetected); Methadone Screen, Urine Not Detected (NotDetected); Opiate Screen,Urine Not Detected (NotDetected); Oxycodone Screen, Urine Not Detected (NotDetected); Phencyclidine Screen,Urine Not Detected (NotDetected); Tricyclic Antidepressant,Urine Not Detected (NotDetected); Urn Cannabinoid Scrn Not Detected (NotDetected)
[2023-08-21] MEDS ORDERED: LIDOCAINE 4% PATCH TOPICAL PRN (12:19)
[2023-08-21] MEDS ORDERED: methocarbamoL 750 MG TAB PO PRN (12:19)
[2023-08-21] MEDS ORDERED: LIDOCAINE 4% CREAM 5 GM TUBE TOPICAL PRN (12:19)
--- NOTE | 2023-08-21 15:12 | P.HPIM ---
History of Present Illness H&P Date: 08/21/23 Patient is a 48-year-old male with history of alcohol dependence, DVT/PE, paroxysmal atrial fibrillation, hypertension, depression/anxiety, dyslipidemia presenting with chest pain for the last 2 days. He claims that his chest pain is central, often radiating to right upper arm. Also having some epigastric pain. Pain comes and goes, at worst its 9 out of 10. Describes pain as chest pressure, associated with some shortness of breath. Denies any palpitations or lightheadedness. Denies any nausea or vomiting, urinary or bowel complaints. Denies any fevers or chills. In the ED, temperature 98.2, pulse 116, respiratory rate 18, blood pressure 140/99, saturating at 96% on room air. WBC 4, hemoglobin 14.6, platelet 114, D- dimer 2.99, creatinine 0.92, sodium 147, magnesium 1.5, troponin negative, lipase 543, serum alcohol 367, urinalysis positive for benzos, urinalysis negative. Chest x-ray independently interpreted, shows no acute opacities. Chest CTA did not show any acute PE. Gallbladder ultrasound shows hepatomegaly hepatic steatosis, no evidence of gallstones or cholecystitis. EKG shows sinus tachycardia with nonspecific ST-T wave changes. Patient being monitored for alcohol withdrawal syndrome. Cardiology consulted for chest pain. Pertinent positives and negatives as discussed in HPI, a complete review of systems was performed and all other systems are negative. Patient seen and examined at bedside. Vital signs reviewed General: nontoxic, no distress, appears at stated age, somnolent, obese Derm: warm, dry Head: atraumatic, normocephalic, symmetric Eyes: EOMI, no lid lag, anicteric sclera, pupils equal round reactive to light ENT: Nose and ears atraumatic Neck: No thyromegaly, supple Mouth: no lip lesion, mucus membranes moist Cardiovascular: S1S2 reg, tachycardic, no murmur, no edema Lungs: clear to auscultation bilateral, no rhonchi, no rales, no wheeze, no accessory muscle use Abdominal: soft, nontender to palpation, no guarding, no appreciable organomegaly Ext: no gross muscle atrophy, muscle strength muscle strength 5 out of 5 in all 4 extremities, no contractures Neuro: CN II-XII grossly intact Psych: Somnolent, oriented, appropriate affect Assessment/Plan: Active: Alcohol intoxication Alcohol dependence with impending withdrawal -Ativan IV as needed per CIWA scores, monitor for sedation -Oral thiamine 100 mg daily Atypical chest pain, rule out ACS Sinus tachycardia -CTA negative for PE -Possibly gastritis in the setting of chronic alcohol use -Continue home Protonix 40 mg daily -Cardiology consulted -Trend troponin -Telemetry monitoring Mild thrombocytopenia, no active bleeding -Repeat CBC tomorrow Hypernatremia, likely in the setting of dehydration from alcohol use -Was given IV fluids in the ED, encourage oral intake -Repeat BMP tomorrow Hypomagnesemia -Given 1 g of IV magnesium sulfate in the ED -Repeat magnesium tomorrow Chronic: Hypertension Anxiety/depression Paroxysmal atrial fibrillation PE/DVT The patient is admitted with an anticipated less than 2 midnight stay as observation status for evaluation of chest pain and alcohol intoxication. Surrogate decision-maker: Sibling CODE STATUS: Full code DVT prophylaxis: Eliquis Anticipated discharge date: Pending clinical course Anticipated discharge place: Pending clinical course A total of minutes was spent on the care of this complex patient more than 50% of the time was spent in counseling and care coordination. Past Medical History Past Medical History: Atrial Fibrillation, Asthma, Deep Vein Thrombosis (DVT), GERD/Reflux, GI Bleed, Hypertension Additional Past Medical History / Comment(s): left foot surgery pt states he has steel in his foot. Blood clots in arm pt is now on eliquis, states it was within the last month History of Any Multi-Drug Resistant Organisms: None Reported Past Surgical History: No Surgical Hx Reported, Orthopedic Surgery, Tonsillectomy Additional Past Surgical History / Comment(s): left foot Past Anesthesia/Blood Transfusion Reactions: No Reported Reaction Past Psychological History: Anxiety Smoking Status: Current every day smoker Past Alcohol Use History: Abuse, Daily, Heavy Past Drug Use History: None Reported Medications and Allergies Home Medications Medication Instructions Recorded Confirmed Type Acetaminophen [Tylenol Arthritis] 650 mg PO Q8H PRN 10/14/22 08/21/23 History Atorvastatin [Lipitor] 40 mg PO DAILY 10/14/22 08/21/23 History Fenofibrate,Micronized 200 mg PO DAILY 10/14/22 08/21/23 History [Fenofibrate] Magnesium Oxide [Magox 400] 400 mg PO BID 10/14/22 08/21/23 History Multivitamins, Thera [Multivitamin 1 tab PO DAILY 10/14/22 08/21/23 History (formulary)] Thiamine [Vitamin B-1] 100 mg PO DAILY 10/14/22 08/21/23 History Amiodarone [Cordarone] 200 mg PO DAILY 08/15/23 08/21/23 History Apixaban [Eliquis] 5 mg PO BID 08/15/23 08/21/23 History Folic Acid 2 mg PO DAILY 08/15/23 08/21/23 History Gabapentin [Neurontin] 300 mg PO TID 08/15/23 08/21/23 History Lidocaine [Aspercreme Patch] 1 patch TRANSDERM DAILY PRN 08/15/23 08/21/23 History Metoprolol Succinate (ER) [Toprol 50 mg PO DAILY 08/15/23 08/21/23 History XL] NIFEdipine XL [Procardia XL] 30 mg PO DAILY 08/15/23 08/21/23 History Pantoprazole Sodium [Protonix] 20 mg PO BID 08/15/23 08/21/23 History Venlafaxine HCl [Effexor XR] 75 mg PO DAILY 08/15/23 08/21/23 History busPIRone HCL 15 mg PO BID 08/15/23 08/21/23 History hydroCHLOROthiazide [Hydrodiuril] 25 mg PO DAILY 08/15/23 08/21/23 History lidocaine HCL [Asperflex] 1 applic TOPICAL BID PRN 08/15/23 08/21/23 History methocarbamoL [Robaxin-750] 750 mg PO Q8H PRN 08/15/23 08/21/23 History Cholecalciferol [Vitamin D3 (25 125 mcg PO DAILY 08/21/23 08/21/23 History Mcg = 1000 Iu)] Allergies Allergy/AdvReac Type Severity Reaction Status Date / Time VAUGHN Inhibitors Allergy Unknown Verified 08/21/23 11:38 Physical Exam Vitals: Vital Signs Temp Pulse Resp BP Pulse Ox 08/21/23 15:05 99 22 129/87 96 08/21/23 14:00 98.0 F 98 20 114/80 92 L 08/21/23 13:05 104 H 18 140/80 96 08/21/23 12:13 103 H 22 151/99 94 L 08/21/23 11:25 105 H 19 97 08/21/23 11:05 113 H 20 138/97 95 08/21/23 09:50 98.2 F 112 H 17 117/93 93 L 08/21/23 08:36 95 08/21/23 08:35 98.9 F 108 H 20 155/88 90 L 08/21/23 06:25 98.2 F 116 H 18 140/99 96 Intake and Output 08/21/23 08/21/23 08/21/23 06:59 14:59 22:59 Other: Weight 113.398 kg Results CBC & Chem 7: 08/21/23 06:46 08/21/23 06:46 Labs: Abnormal Lab Results - Last 24 Hours (Table) 08/21/23 08/21/23 08/21/23 Range/Units 06:46 06:46 06:46 Plt Count 114 L D (150-450) k/uL D-Dimer 2.99 H (<0.60) mg/L FEU Sodium 147 H (137-145) mmol/L Glucose 112 H (74-99) mg/dL Magnesium 1.5 L (1.6-2.3) mg/dL AST 112 H (17-59) U/L ALT 80 H (4-49) U/L Total Protein 8.8 H (6.3-8.2) g/dL Lipase 543 H (23-300) U/L Urine Protein (Negative) Urine Blood (Negative) Amorphous Sediment (None) /hpf Hyaline Casts (0-2) /lpf Urine Mucus (None) /hpf U Benzodiazepines Scrn (NotDetected) Serum Alcohol 367 H* mg/dL 08/21/23 Range/Units 11:23 Plt Count (150-450) k/uL D-Dimer (<0.60) mg/L FEU Sodium (137-145) mmol/L Glucose (74-99) mg/dL Magnesium (1.6-2.3) mg/dL AST (17-59) U/L ALT (4-49) U/L Total Protein (6.3-8.2) g/dL Lipase (23-300) U/L Urine Protein 2+ H (Negative) Urine Blood Trace H (Negative) Amorphous Sediment Rare H (None) /hpf Hyaline Casts 50 H (0-2) /lpf Urine Mucus Many H (None) /hpf U Benzodiazepines Scrn Detected H (NotDetected) Serum Alcohol mg/dL
[2023-08-21] MEDS: GABAPENTIN 300 MG CAP PO SCH (16:58)
[2023-08-21] MEDS ORDERED: LORazepam 1 MG/0.5 ML VIAL IV PRN ×3 (18:32→18:33)
[2023-08-21] MEDS: ACETAMINOPHEN TAB 325 MG TAB PO PRN (20:28)
[2023-08-21] MEDS: APIXABAN 5 MG TAB PO SCH (20:29)
[2023-08-21] MEDS: MAGNESIUM OXIDE 400 MG TAB PO SCH (20:29)
[2023-08-21] MEDS: busPIRone HCl 5 MG TAB PO SCH (20:29)
[2023-08-21] MEDS: LORazepam 1 MG/0.5 ML VIAL IV PRN (20:30)
[2023-08-22 04:58] LABS: African American GFR (CKD) >90 (>60 ml/min/1.73 sqM); Anion Gap 7 mmol/L; Blood Urea Nitrogen 13 mg/dL (9-20); Calcium 8.5 mg/dL (8.4-10.2); Carbon Dioxide 30 mmol/L (22-30); Chloride 100 mmol/L (98-107); Glucose 88 mg/dL (74-99); Magnesium 1.4 mg/dL (1.6-2.3); Non-African American GFR(CKD) >90 (>60 ml/min/1.73 sqM); Potassium 2.9 mmol/L (3.5-5.1); Sodium 137 mmol/L (137-145)
[2023-08-22 05:03] LABS: Basophils % (A) 0 %; Eosinophils % (A) 1 %; HCT 37.3 % (39.0-53.0); Lymphocytes # (A) 0.9 k/uL (1.0-4.8); Lymphocytes % (A) 28 %; MCH 30.9 pg (25.0-35.0); MCHC 32.2 g/dL (31.0-37.0); Mean Platelet Volume 9.1; Monocytes # (A) 0.3 k/uL (0-1.0); Monocytes % (A) 8 %; Neutrophils % (A) 61 %; RBC 3.88 m/uL (4.30-5.90); RDW 14.3 % (11.5-15.5); WBC 3.2 k/uL (3.8-10.6)
[2023-08-22 05:04] LABS: Platelet Count 81 k/uL (150-450)
[2023-08-22] MEDS: PANTOPRAZOLE 40 MG TABLET PO SCH (06:56)
[2023-08-22] MEDS: THIAMINE 100 MG TAB PO SCH (08:56)
[2023-08-22] MEDS: FENOFIBRATE 160 MG TAB PO SCH (08:56)
[2023-08-22] MEDS: AMIODARONE 200 MG TAB PO SCH (08:56)
[2023-08-22] MEDS: FOLIC ACID 1 MG TAB PO SCH (08:56)
[2023-08-22] MEDS: NIFEdipine XL 30 MG TAB.ER.24 PO SCH (08:56)
[2023-08-22] MEDS: METOPROLOL SUCCINATE (ER) 50 MG TAB.ER.24H PO SCH (08:56)
[2023-08-22] MEDS: VENLAFAXINE HCL ER 75 MG CAP PO SCH (08:57)
[2023-08-22] MEDS: CHOLECALCIFEROL 125 MCG (5000 IU) TABLET PO SCH (08:57)
[2023-08-22] MEDS: MULTIVITAMINS, THERA 1 EACH TAB PO SCH (08:57)
[2023-08-22] MEDS: ATORVASTATIN 40 MG TAB PO SCH (08:57)
[2023-08-22] MEDS: hydroCHLOROthiazide 25 MG TAB PO SCH (08:57)
[2023-08-22] MEDS ORDERED: THIAMINE 100 MG TAB PO SCH (09:00)
[2023-08-22] MEDS ORDERED: VITAMIN D3 PO SCH (09:00)
[2023-08-22] MEDS ORDERED: PANTOPRAZOLE 40 MG/10 ML VIAL IV SCH (09:00)
[2023-08-22] MEDS: POTASSIUM CHLORIDE ER 20 MEQ TAB.ER PO SCH (09:03)
[2023-08-22] MEDS: LORazepam 1 MG TAB PO PRN (09:03)
--- NOTE | 2023-08-22 13:53 | P.PN ---
Subjective Progress Note Date: 08/22/23 Hospital Course: 48-year-old male with history of alcohol dependence, DVT/PE, paroxysmal atrial fibrillation, prior gastritis, GI bleed, protein S deficiency, hypertension, depression/anxiety, dyslipidemia presenting with chest pain for the last 2 days. In the ED, temperature 98.2, pulse 116, respiratory rate 18, blood pressure 140/99, saturating at 96% on room air. WBC 4, hemoglobin 14.6, platelet 114, D- dimer 2.99, creatinine 0.92, sodium 147, magnesium 1.5, troponin negative, lipase 543, serum alcohol 367, urinalysis positive for benzos, urinalysis negative. Chest x-ray independently interpreted, shows no acute opacities. Chest CTA did not show any acute PE. Gallbladder ultrasound shows hepatomegaly hepatic steatosis, no evidence of gallstones or cholecystitis. EKG shows sinus tachycardia with nonspecific ST-T wave changes. Patient being monitored for alcohol withdrawal syndrome. Cardiology consulted for chest pain. Subjective: Send seen and examined at bedside. No acute events overnight. Complaining of persistent chest pain. Pertinent positives and negatives as discussed above, a complete review of systems was performed and all other systems are negative. Vitals Signs Reviewed. General: Nontoxic, no distress, appears at stated age, obese Derm: Warm, dry Head: Atraumatic, normocephalic, symmetric Eyes: EOMI, no lid lag, anicteric sclera Mouth: No lip lesion, mucus membranes moist Cardiovascular: S1S2 reg, no murmur Lungs: CTA bilateral, no rhonchi, no rales, no accessory muscle use Abdominal: Soft, nontender to palpation, no guarding, no appreciable organomegaly Ext: No gross muscle atrophy, no edema, no contractures Neuro: CN II-XI grossly intact, no focal neuro deficits Psych: Alert, oriented, appropriate affect Data Reviewed Today: Pertinent Labs: WBC 3.2, hemoglobin 12, platelet 481, potassium 2.9, magnesium 1.4, troponin negative x 3, creatinine 0.74 Imaging: No new imaging Assessment and Plan: Active: Alcohol intoxication Alcohol dependence with impending withdrawal -Ativan IV as needed per CIWA scores, monitor for sedation -Oral thiamine 100 mg daily Atypical chest pain, ACS ruled out Sinus tachycardia Uncontrolled hypertension -CTA negative for PE -Possibly gastritis in the setting of chronic alcohol use, patient does have h istory of gastritis, has seen GI in the past, hemoglobin currently stable -Continue home Protonix 40 mg daily -Cardiology consulted -Telemetry monitoring -For uncontrolled hypertension, started on Coreg 6.25 twice daily, metoprolol discontinued, continue nifedipine 30 mg as well as hydrochlorothiazide 25 mg daily Hypomagnesemia Hypokalemia -80 mill equivalent oral potassium, 2 g of IV magnesium given today -Repeat BMP and magnesium tomorrow Pancytopenia -Likely in the setting of chronic alcohol use as well as acute illness -Repeat CBC tomorrow Hypernatremia,, resolved Chronic: Anxiety/depression Paroxysmal atrial fibrillation PE/DVT Protein S deficiency DVT ppx: Eliquis Code status: Full code Anticipated discharge place: Pending clinical course Anticipated discharge time: Pending clinical course Objective - Vital Signs Vital signs: Vital Signs Temp 98.2 F 08/22/23 07:15 Pulse 99 08/22/23 07:15 Resp 16 08/21/23 20:00 BP 189/103 08/22/23 07:15 Pulse Ox 99 08/22/23 07:15 FiO2 Intake & Output 08/21/23 08/22/23 08/22/23 18:59 06:59 18:59 Intake Total 240 Balance 240 Weight 113.398 kg Intake: Oral 240 Other: Voiding Method Toilet # Voids 0 - Labs CBC & Chem 7: 08/22/23 04:07 08/22/23 04:07 Labs: Abnormal Lab Results - Last 24 Hours (Table) 08/22/23 08/22/23 Range/Units 04:07 04:07 WBC 3.2 L (3.8-10.6) k/uL RBC 3.88 L (4.30-5.90) m/uL Hgb 12.0 L (13.0-17.5) gm/dL Hct 37.3 L (39.0-53.0) % Plt Count 81 L (150-450) k/uL Lymphocytes # 0.9 L (1.0-4.8) k/uL Potassium 2.9 L (3.5-5.1) mmol/L Magnesium 1.4 L (1.6-2.3) mg/dL
[2023-08-22] MEDS: MAGNESIUM SULFATE-D5W PMX 1 GM in DEXTROSE/WATER 1 100ML.BAG IVPB SCH (14:35)
[2023-08-22] MEDS: carvediloL 6.25 MG TAB PO SCH (16:31)
--- NOTE | 2023-08-22 17:03 | P.CRDCN ---
History of Present Illness Consult date: 08/22/23 History of present illness: HISTORY OF PRESENTING ILLNESS 48-year-old male with history of alcohol dependence, DVT, PE, paroxysmal atrial fibrillation, hypertension, dyslipidemia. He presented to the hospital because of substernal chest pressure like sensation like elephant sitting on his chest for last 2 to 3 days. His symptoms are not related to exertion. Patient reported that few weeks ago he was at [facility] for similar symptoms where he was admitted for ICU. He was told that he had intermittent atrial fibrillation. He also reported that he has prior history of PE and is on anticoagulation with Eliquis He drinks fifth of alcohol every day. On admission he had elevated D-dimer, low platelets of 114, low magnesium, hyponatremia, lipase of 543 serum alcohol of 367 CTA negative for PE ECG sinus tachycardia REVIEW OF SYSTEMS 14 point review of system is negative except what is mentioned above in HPI. PHYSICAL EXAMINATION Vital signs reviewed. Morbidly obese Head: Normocephalic. Eyes: Sclerae nonicteric. Neck: Brisk carotid upstroke, no jugular venous distention. Lungs: Clear to auscultation. Heart: Regular rate and rhythm, S1-S2, no S3, no murmur or rub. Abdomen: Soft nontender, positive bowel sounds. Extremities: No edema, intact distal pulses. Neuro: Alert, oritented, no focal deficits. Detailed neuro exam was not perfo rmed. ASSESSMENT Atypical chest pain Prior history of PE and DVT Alcohol abuse, currently intoxicated on admission. Elevated lipase Obesity Prior smoker PLAN Patient is rule out of acute coronary syndrome Obtain an echocardiogram to look for any alcoholic cardiomyopathy Obtain medical records from [facility] Martin Diana MD, FACC, RPVI Thank you for allowing [facility] to participate in this patient's care. Feel free to reach out in case of any followup questions. Past Medical History Past Medical History: Atrial Fibrillation, Asthma, Deep Vein Thrombosis (DVT), GERD/Reflux, GI Bleed, Hypertension Additional Past Medical History / Comment(s): left foot surgery pt states he has steel in his foot. Blood clots in arm pt is now on eliquis, states it was within the last month History of Any Multi-Drug Resistant Organisms: None Reported Past Surgical History: No Surgical Hx Reported, Orthopedic Surgery, Tonsillectomy Additional Past Surgical History / Comment(s): left foot Past Anesthesia/Blood Transfusion Reactions: No Reported Reaction Past Psychological History: Anxiety Smoking Status: Current every day smoker Past Alcohol Use History: Abuse, Daily, Heavy Additional Past Alcohol Use History / Comment(s): patient reports a 5th a day with drinking every day Past Drug Use History: None Reported Medications and Allergies Home Medications Medication Instructions Recorded Confirmed Type Acetaminophen [Tylenol Arthritis] 650 mg PO Q8H PRN 10/14/22 08/21/23 History Atorvastatin [Lipitor] 40 mg PO DAILY 10/14/22 08/21/23 History Fenofibrate,Micronized 200 mg PO DAILY 10/14/22 08/21/23 History [Fenofibrate] Magnesium Oxide [Magox 400] 400 mg PO BID 10/14/22 08/21/23 History Multivitamins, Thera [Multivitamin 1 tab PO DAILY 10/14/22 08/21/23 History (formulary)] Thiamine [Vitamin B-1] 100 mg PO DAILY 10/14/22 08/21/23 History Amiodarone [Cordarone] 200 mg PO DAILY 08/15/23 08/21/23 History Apixaban [Eliquis] 5 mg PO BID 08/15/23 08/21/23 History Folic Acid 2 mg PO DAILY 08/15/23 08/21/23 History Gabapentin [Neurontin] 300 mg PO TID 08/15/23 08/21/23 History Lidocaine [Aspercreme Patch] 1 patch TRANSDERM DAILY PRN 08/15/23 08/21/23 History Metoprolol Succinate (ER) [Toprol 50 mg PO DAILY 08/15/23 08/21/23 History XL] NIFEdipine XL [Procardia XL] 30 mg PO DAILY 08/15/23 08/21/23 History Pantoprazole Sodium [Protonix] 20 mg PO BID 08/15/23 08/21/23 History Venlafaxine HCl [Effexor XR] 75 mg PO DAILY 08/15/23 08/21/23 History busPIRone HCL 15 mg PO BID 08/15/23 08/21/23 History hydroCHLOROthiazide [Hydrodiuril] 25 mg PO DAILY 08/15/23 08/21/23 History lidocaine HCL [Asperflex] 1 applic TOPICAL BID PRN 08/15/23 08/21/23 History methocarbamoL [Robaxin-750] 750 mg PO Q8H PRN 08/15/23 08/21/23 History Cholecalciferol [Vitamin D3 (25 125 mcg PO DAILY 08/21/23 08/21/23 History Mcg = 1000 Iu)] Allergies Allergy/AdvReac Type Severity Reaction Status Date / Time VAUGHN Inhibitors Allergy Unknown Verified 08/21/23 11:38 Physical Exam Vitals: Vital Signs Temp Pulse Pulse Resp BP BP BP 08/22/23 14:10 98.4 F 101 H 173/104 08/22/23 07:15 98.2 F 99 189/103 08/22/23 01:01 98.2 F 107 H 174/108 08/21/23 20:00 98.9 F 114 H 16 167/75 08/21/23 17:07 98.8 F 115 H 20 126/85 Pulse Ox 08/22/23 14:10 94 L 08/22/23 07:15 99 08/22/23 01:01 96 08/21/23 20:00 91 L 08/21/23 17:07 95 Intake and Output 08/22/23 08/22/23 08/22/23 06:59 14:59 22:59 Intake Total 460 Balance 460 Intake: Oral 460 Other: Voiding Method Toilet # Voids 0 2 # Bowel Movements 2 Results 08/22/23 04:07 08/22/23 04:07 Cardiac Enzymes 08/21/23 Range/Units 16:57 Troponin I <0.012 (0.000-0.034) ng/mL CBC 08/22/23 Range/Units 04:07 WBC 3.2 L (3.8-10.6) k/uL RBC 3.88 L (4.30-5.90) m/uL Hgb 12.0 L (13.0-17.5) gm/dL Hct 37.3 L (39.0-53.0) % Plt Count 81 L (150-450) k/uL Comprehensive Metabolic Panel 08/22/23 Range/Units 04:07 Sodium 137 (137-145) mmol/L Potassium 2.9 L (3.5-5.1) mmol/L Chloride 100 (98-107) mmol/L Carbon Dioxide 30 (22-30) mmol/L BUN 13 (9-20) mg/dL Creatinine 0.74 (0.66-1.25) mg/dL Glucose 88 (74-99) mg/dL Calcium 8.5 (8.4-10.2) mg/dL Current Medications Generic Name Dose Route Start Last Admin Trade Name Freq PRN Reason Stop Dose Admin Acetaminophen 650 mg 08/21/23 11:23 08/21/23 20:28 Acetaminophen Tab 325 Mg Tab PO 650 mg Q6HR PRN Administration Mild Pain or Fever > 100.5 Acetaminophen 650 mg 08/21/23 12:19 Acetaminophen Tab 325 Mg Tab PO Q8H PRN Pain Amiodarone HCl 200 mg 08/22/23 09:00 08/22/23 08:56 Amiodarone 200 Mg Tab PO 200 mg DAILY LIAT Administration Apixaban 5 mg 08/21/23 21:00 08/22/23 08:57 Apixaban 5 Mg Tab PO 5 mg BID LIAT Administration Protocol Atorvastatin Calcium 40 mg 08/22/23 09:00 08/22/23 08:57 Atorvastatin 40 Mg Tab PO 40 mg DAILY LIAT Administration Buspirone HCl 15 mg 08/21/23 21:00 08/22/23 08:56 Buspirone Hcl 5 Mg Tab PO 15 mg BID LIAT Administration Carvedilol 6.25 mg 08/22/23 17:30 08/22/23 16:31 Carvedilol 6.25 Mg Tab PO 6.25 mg BID-W/MEALS LIAT Administration Cholecalciferol 125 mcg 08/22/23 09:00 08/22/23 08:57 Cholecalciferol 125 Mcg (5000 Iu) Tablet PO 125 mcg DAILY LIAT Administration Fenofibrate 160 mg 08/22/23 09:00 08/22/23 08:56 Fenofibrate 160 Mg Tab PO 160 mg DAILY LIAT Administration Folic Acid 2 mg 08/22/23 09:00 08/22/23 08:56 Folic Acid 1 Mg Tab PO 2 mg DAILY LIAT Administration Gabapentin 300 mg 08/21/23 16:00 08/22/23 16:31 Gabapentin 300 Mg Cap PO 300 mg TID LIAT Administration Hydrochlorothiazide 25 mg 08/22/23 09:00 08/22/23 08:57 Hydrochlorothiazide 25 Mg Tab PO 25 mg DAILY LIAT Administration Lidocaine 1 patch 08/21/23 12:19 Lidocaine 4% Patch TOPICAL DAILY PRN Pain Protocol Lidocaine HCl 1 applic 08/21/23 12:19 Lidocaine 4% Cream 5 Gm Tube TOPICAL BID PRN Pain Lorazepam 1 mg 08/21/23 11:02 08/22/23 09:03 Lorazepam 1 Mg Tab PO 1 mg Q1HR PRN Administration Alcohol Withdrawal Lorazepam 1 mg 08/21/23 18:32 Lorazepam 1 Mg/0.5 Ml Vial IV Q1HR PRN CIWA 10 to 15 Lorazepam 1 mg 08/21/23 18:32 08/22/23 14:42 Lorazepam 1 Mg/0.5 Ml Vial IV 1 mg Q2HR PRN Administration CIWA 8 or 9 Lorazepam 2 mg 08/21/23 18:33 Lorazepam 1 Mg/0.5 Ml Vial IV 08/23/23 11:03 Q10M PRN CIWA 16 or higher Lorazepam 2 mg 08/21/23 18:33 Lorazepam 1 Mg/0.5 Ml Vial IV Q6HR PRN Seizures Magnesium Oxide 400 mg 08/21/23 21:00 08/22/23 08:57 Magnesium Oxide 400 Mg Tab PO 400 mg BID LIAT Administration Methocarbamol 750 mg 08/21/23 12:19 Methocarbamol 750 Mg Tab PO Q8H PRN Pain Multivitamins 1 each 08/22/23 09:00 08/22/23 08:57 Multivitamins, Thera 1 Each Tab PO 1 each DAILY LIAT Administration Naloxone HCl 0.2 mg 08/21/23 11:23 Naloxone 0.4 Mg/Ml 1 Ml Vial IV Q2M PRN Opioid Reversal Nifedipine 30 mg 08/22/23 09:00 08/22/23 08:56 Nifedipine Xl 30 Mg Tab.Er.24 PO 30 mg DAILY LIAT Administration Ondansetron HCl 4 mg 08/21/23 11:23 Ondansetron 4 Mg/2 Ml Vial IVP Q8HR PRN Nausea And Vomiting Pantoprazole Sodium 40 mg 08/22/23 07:30 08/22/23 06:56 Pantoprazole 40 Mg Tablet PO 40 mg DAILY@0730 LIAT Administration Thiamine HCl 100 mg 08/22/23 09:00 08/22/23 08:56 Thiamine 100 Mg Tab PO 100 mg DAILY LIAT Administration Venlafaxine HCl 75 mg 08/22/23 09:00 08/22/23 08:57 Venlafaxine Hcl Er 75 Mg Cap PO 75 mg DAILY LIAT Administration Intake and Output 08/22/23 08/22/2324 06:59 14:59 22:59 Intake Total 460 Balance 460 Intake: Oral 460 Other: Voiding Method Toilet # Voids 0 2 # Bowel Movements 2 08/22/23 04:07 08/22/23 04:07
[2023-08-23 10:34] LABS: Basophils # (A) 0.02 X 10*3/uL (0.00-0.10); Basophils % (A) 0.6 %; Eosinophils # (A) 0.07 X 10*3/uL (0.04-0.35); Eosinophils % (A) 2.1 %; HCT 39.3 % (39.6-50.0); HGB 13.3 g/dL (13.0-17.0); Immature Platelet Fraction 11.7 % (1.1-6.1); Lymphocytes # (A) 0.98 X 10*3/uL (0.90-5.00); Lymphocytes % (A) 29.5 %; MCH 31.4 pg (27.0-32.0); MCHC 33.8 g/dL (32.0-37.0); MCV 92.7 FL (80.0-97.0); Mean Platelet Volume 12.3 FL (9.5-12.2); Monocytes # (A) 0.58 X 10*3/uL (0.20-1.00); Monocytes % (A) 17.5 %; NRBC Per 100 WBC 0 X 10*3/uL (0.00-0.01); Neutrophils # (A) 1.66 X 10*3/uL (1.80-7.70); Platelet Count 74 X 10*3/uL (140-440); RBC 4.24 X 10*6/uL (4.40-5.60); RDW 14.1 % (11.5-14.5); WBC 3.32 X 10*3/uL (4.50-10.00)
[2023-08-23 10:36] LABS: BUN/Creat Ratio 8.56 Ratio (12.00-20.00); Blood Urea Nitrogen 7.7 mg/dL (9.0-27.0); Calcium 9.5 mg/dL (8.7-10.3); Carbon Dioxide 26.2 mmol/L (21.6-31.8); Chloride 98 mmol/L (96-109); Glucose 106 mg/dL (70-110); Magnesium 1.7 mg/dL (1.5-2.4); Potassium 4.2 mmol/L (3.5-5.5); Sodium 136 mmol/L (135-145)
--- NOTE | 2023-08-23 12:48 | CA ---
Transthoracic Echo Report Name: Lane Patterson Age: 48 Gender: M : 1975 Exam Date: 08/23/2023 11:09 Exam Location: [facility] Ht (in): 73 Wt (lb): 250 Ordering Physician: Martin Diana MD ([id number]) Attending/Referring Phys: Learning Support Assistant Melody Richardson RDCS Procedure CPT: Indications: CHF CHest pain Cardiac Hx: Technical Quality: Technically difficult study Contrast 1: Definity Total Dose (mL): 2 Contrast 2: Total Dose (mL): MEASUREMENTS (Male / Female) Normal Values 2D ECHO LV Diastolic Diameter PLAX 4.2 cm 4.2 - 5.9 / 3.9 - 5.3 cm LV Systolic Diameter PLAX 2.7 cm IVS Diastolic Thickness 1.5 cm 0.6 - 1.0 / 0.6 - 0.9 cm LVPW Diastolic Thickness 1.3 cm 0.6 - 1.0 / 0.6 - 0.9 cm LV Relative Wall Thickness 0.6 RV Internal Dim ED PLAX 4.1 cm M-MODE Aortic Root Diameter MM 3.4 cm LA Systolic Diameter MM 3.3 cm LA Ao Ratio MM 1.0 AV Cusp Separation MM 2.1 cm DOPPLER AV Peak Velocity 116.8 cm/s AV Peak Gradient 5.5 mmHg AV Mean Velocity 82.2 cm/s AV Mean Gradient 3.0 mmHg AV Velocity Time Integral 15.9 cm LVOT Peak Velocity 76.5 cm/s LVOT Peak Gradient 2.3 mmHg LVOT Velocity Time Integral 15.0 cm MV Area PHT 4.0 cm??? Mitral E Point Velocity 32.7 cm/s Mitral A Point Velocity 41.5 cm/s Mitral E to A Ratio 0.8 MV Deceleration Time 187.7 ms TR Peak Velocity 157.3 cm/s TR Peak Gradient 9.9 mmHg Right Ventricular Systolic Press 14.5 mmHg FINDINGS Left Ventricle Moderately increased septal wall thickness. Left ventricular cavity size normal. Normal left ventricular systolic function with no obvious regional wall motion abnormalities. Left ventricular ejection fraction is estimated at 55-60 %. Grade 1 diastolic dysfunction. Right Ventricle Moderate right ventricular dilatation. Right ventricular systolic pressure within normal limits. Right Atrium Normal right atrial size. Left Atrium Normal left atrial size. Mitral Valve Structurally normal mitral valve. No mitral stenosis, regurgitation or prolapse. Aortic Valve No aortic valve stenosis or regurgitation. Tricuspid Valve Structurally normal tricuspid valve. Mild tricuspid regurgitation. Pulmonic Valve Structurally normal pulmonic valve. Pericardium No pericardial effusion. Aorta Normal size aortic root and proximal ascending aorta. CONCLUSIONS Left ventricular ejection fraction 55-60% Moderate increased left ventricular wall thickness Mild to moderate right ventricular dilation No mitral regurgitation Mild tricuspid regurgitation RVSP 14 Previewed by: Dr. Robles Lewis DO (Electronically Signed) Final Date: 23 Aug 2023 12:47
--- NOTE | 2023-08-23 13:14 | P.PN ---
Subjective HISTORY OF PRESENT ILLNESS: 08/22/2023 48-year-old male with history of alcohol dependence, DVT, PE, paroxysmal atrial fibrillation, hypertension, dyslipidemia. He presented to the hospital because of substernal chest pressure like sensation like elephant sitting on his chest for last 2 to 3 days. His symptoms are not related to exertion. Patient reported that few weeks ago he was at [facility] for similar symptoms where he was admitted for ICU. He was told that he had intermittent atrial fibrillation. He also reported that he has prior history of PE and is on anticoagulation with Eliquis He drinks fifth of alcohol every day. On admission he had elevated D-dimer, low platelets of 114, low magnesium, hyponatremia, lipase of 543 serum alcohol of 367 CTA negative for PE ECG sinus tachycardia 08/23/2023 Patient examined this morning at the bedside. Patient continues to report chest discomfort at the time of examination. Patient currently denies any shortness of breath. Vital signs are stable. Telemetry reveals sinus mechanism. Still awaiting records from [facility]. Echocardiogram completed revealing ejection fraction 55 to 60%, mild to moderate right ventricular dilatation, mild TR. PHYSICAL EXAM: VITAL SIGNS: Reviewed. GENERAL: Well-developed in no acute distress. NECK: Supple. No JVD or thyromegaly LUNGS: Respirations even and unlabored. Lungs essentially clear to auscultation bilaterally. HEART: Regular rate and rhythm. S1 and S2 heard. EXTREMITIES: Normal range of motion. No clubbing or cyanosis. Peripheral pulses intact. No lower extremity edema ASSESSMENT: Chest pain Acute alcohol intoxication Elevated lipase History of PE/DVT, on Eliquis outpatient Paroxysmal atrial fibrillation Hypertension Hyperlipidemia Obesity: BMI 33.0 PLAN: Continue current cardiac medications Hold Eliquis Patient to undergo cardiac catheterization with Dr. Diana tomorrow at 1630 Patient may have breakfast and then NPO after breakfast tomorrow Still awaiting records from [facility] Further recommendations pending patient course Nurse practitioner note has been reviewed by physician. Signing provider agrees with the documented findings, assessment, and plan of care documented by IT SUPPORT CONSULTANT as a scribe. Objective - Vital Signs Vital signs: Vital Signs Temp 97.5 F L 08/23/23 07:00 Pulse 93 08/23/23 07:00 Resp 16 08/23/23 09:44 BP 151/102 08/23/23 07:00 Pulse Ox 99 08/23/23 11:44 FiO2 Intake & Output 08/22/23 08/23/23 08/23/23 18:59 06:59 18:59 Intake Total 460 238 Balance 460 238 Intake: Oral 460 238 Other: Voiding Method Toilet Toilet Toilet # Voids 2 1 # Bowel Movements 2 - Labs CBC & Chem 7: 08/23/23 07:18 08/23/23 07:18 Labs: Abnormal Lab Results - Last 24 Hours (Table) 08/23/23 08/23/23 Range/Units 07:18 07:18 WBC 3.32 L (4.50-10.00) X 10*3/uL RBC 4.24 L (4.40-5.60) X 10*6/uL Hct 39.3 L (39.6-50.0) % Plt Count 74 L (140-440) X 10*3/uL MPV 12.3 H (9.5-12.2) FL Neutrophils # 1.66 L (1.80-7.70) X 10*3/uL Immature Plt Fraction 11.7 H (1.1-6.1) % BUN 7.7 L (9.0-27.0) mg/dL BUN/Creatinine Ratio 8.56 L (12.00-20.00) Ratio
[2023-08-23] MEDS ORDERED: NITROGLYCERIN SL TABS 0.4 MG TAB SUBLINGUAL PRN (14:05)
[2023-08-23] MEDS: ACETAMINOPHEN TAB 325 MG TAB PO PRN (17:52)
--- NOTE | 2023-08-23 18:50 | P.PN ---
Subjective Progress Note Date: 08/23/23 Hospital course: Patient is a 48-year-old male with a past medical history of daily alcohol abuse, paroxysmal atrial fibrillation on anticoagulation with Eliquis, hypertension, hyperlipidemia, previous DVT, anxiety, and nicotine dependence. He presented to the emergency department on 08/21/2023 with a chief complaint of chest pain and epigastric pain. On arrival to the hospital, patient underwent evaluation in the emergency department. Vital signs upon arrival show blood pressure 140/99, heart rate 116, respiratory rate 18, temp 98.2 F, and SpO2 of 96% on room air. EKG was completed showing sinus tachycardia at 110 bpm with no significant T wave or ST abnormalities showing no signs of acute ischemia. Chest x-ray completed negative for acute cardiopulmonary process. Gallbladder ultrasound completed reporting to be a limited study as CBD duct and pancreas is not well visualized however is reporting hepatomegaly and hepatic steatosis no evidence of acute cholecystitis. Completed and reviewed. CBC showing pancytopenia with WBC count of 3.2, hemoglobin 12.0, and platelet count of 81. BMP showing hypokalemia with potassium of 2.9 and hypomagnesemia with magnesium of 1.4. Troponin was negative at less than 0.012. Urinalysis negative for in fection. Urine drug screen positive for benzodiazepines. Lipase elevated at 543. Alcohol level also elevated at 367. D-dimer showing elevated finding of 2.99. CTA chest was completed reporting no evidence for pulmonary emboli stating severe hepatic steatosis. Patient was admitted under our services with consultation to cardiology. Troponins trended all negative at less than 0.012 x 3 draws Physical exam: Vital signs reviewed and stable. General: Nontoxic, no distress and appears stated age. Derm: Skin warm and dry, normal coloration for ethnicity. Head: Atraumatic, normocephalic and symmetric. Eyes: EOMs intact, no lid lag, and anicteric sclera Mouth: no lip lesions, mucus membranes moist Cardiovascular: regular rate and rhythm with normal S1S2, no murmur, positive posterior tibial pulses bilaterally, and cap refill < 2 seconds. Lungs: Respirations even, regular, and unlabored on room air. Lungs CTA bilaterally, no rhonchi, no rales, no wheezing, and no accessory muscle usage. Abdominal: soft, nontender to palpation, no guarding, no appreciable organomegaly Ext: ROM intact. No gross muscle atrophy, no edema, no contractures Neuro: Speech clear, face symmetrical and CN II-XII grossly intact with no noted focal neuro deficits Psych: Alert and oriented to person, place, time, and situation. Appropriate and pleasant affect. Assessment and Plan of Care: Chest pain, acute coronary event ruled out Elevated D-dimer, CTA negative for PE -Cardiology following, reviewed documentation in chart. Travel Ticketing Reviewer planning to take patient for cardiac catheterization on 08/24/2023. -Telemetry monitoring -Troponins negative at less than 0.012 x 3 draws. -Cardiac diet, NPO at midnight -Continue cardiac medication regimen with Eliquis 5 mg twice daily, amiodarone 200 mg daily, atorvastatin 40 mg daily, carvedilol 6.25 mg twice daily, and Procardia 30 mg daily. -Lipid profile with a.m. labs. -Echocardiogram completed and awaiting results. Alcohol withdrawal in active alcoholic Alcohol intoxication upon arrival Epigastric pain Elevated lipase Pancytopenia, suspect secondary to chronic alcohol abuse Hypomagnesemia, secondary to daily alcohol abuse and poor oral intake Hypokalemia, secondary to daily alcohol abuse and continued -Continue monitoring of CIWA scores and patient to be medicated with Ativan 0.5 mg every 4 hours as needed for CIWA score of 4-5, Ativan 1 mg every 4 hours for CIWA score of 6-7, Ativan 2 mg every 3 hours CIWA score of 8-9, and Ativan 2 mg every 2 hours forr CIWA score of 10 or greater. -Multivitamin daily, folic acid, and thiamine daily. -Seizure and fall precautions in place. -Urine drug screen positive for benzodiazepines -Continued close monitoring of electrolytes and replace as needed. -Telemetry monitoring. Anxiety Continue Effexor 75 mg daily for 15 mg twice daily Nicotine dependence Recommend smoking cessation and order placed for nicotine patch 21 mg daily. CODE STATUS: Full code DVT prophylaxis: Eliquis Anticipated discharge date: Pending clinical course Anticipated discharge place: Pending clinical course Patient was seen independently by Nurse Pracitioner. This document was prepared using [employer] dictation software. Please allow for errors in revenue stamp cutter, while rare they do occur. . Jarvis Huff NP rendered care for this patient independently, reviewed the findings and plan as documented in the note above. I did not physically speak w ith or examine the patient on this date. Objective - Vital Signs Vital signs: Vital Signs Temp 97.5 F L 08/23/23 14:49 Pulse 103 H 08/23/23 14:49 Resp 16 08/23/23 14:49 BP 134/82 08/23/23 14:49 Pulse Ox 92 L 08/23/23 14:49 FiO2 Intake & Output 08/22/23 08/23/23 08/23/23 18:59 06:59 18:59 Intake Total 460 238 Balance 460 238 Intake: Oral 460 238 Other: Voiding Method Toilet Toilet Toilet # Voids 2 1 2 # Bowel Movements 2 - Labs CBC & Chem 7: 08/24/23 06:37 08/24/23 06:37 Labs: Abnormal Lab Results - Last 24 Hours (Table) 08/23/23 08/23/23 Range/Units 07:18 07:18 WBC 3.32 L (4.50-10.00) X 10*3/uL RBC 4.24 L (4.40-5.60) X 10*6/uL Hct 39.3 L (39.6-50.0) % Plt Count 74 L (140-440) X 10*3/uL MPV 12.3 H (9.5-12.2) FL Neutrophils # 1.66 L (1.80-7.70) X 10*3/uL Immature Plt Fraction 11.7 H (1.1-6.1) % BUN 7.7 L (9.0-27.0) mg/dL BUN/Creatinine Ratio 8.56 L (12.00-20.00) Ratio
[2023-08-23] MEDS: ALPRAZolam 0.5 MG TAB PO PRN (20:21)
[2023-08-23] MEDS: NICOTINE 21MG/24HR PATCH TRANSDERM SCH (20:22)
[2023-08-24] MEDS: ATORVASTATIN 80 MG TAB PO ONE (06:02)
[2023-08-24] MEDS: SODIUM CHLORIDE 0.9% 1,000 ML in EMPTY BAG 1 BAG IV SCH (06:12)
[2023-08-24] MEDS ORDERED: HEPARIN SODIUM,PORCINE 10,000 UNIT in SODIUM CHLORIDE 0.9% 1,000 ML IRRIGATION PRN (07:00)
[2023-08-24] MEDS ORDERED: HEPARIN SODIUM,PORCINE (1 ML) 2,500 UNIT in SODIUM CHLORIDE 0.9% 250 ML IRRIGATION PRN (07:00)
[2023-08-24] MEDS: ASPIRIN 325 MG TAB PO ONE (08:48)
[2023-08-24 12:15] LABS: HCT 41.4 % (39.6-50.0); HGB 13.6 g/dL (13.0-17.0); MCH 30.7 pg (27.0-32.0); MCHC 32.9 g/dL (32.0-37.0); MCV 93.5 FL (80.0-97.0); Mean Platelet Volume 12.2 FL (9.5-12.2); NRBC Per 100 WBC 0 X 10*3/uL (0.00-0.01); Platelet Count 92 X 10*3/uL (140-440); RBC 4.43 X 10*6/uL (4.40-5.60); WBC 3.55 X 10*3/uL (4.50-10.00)
[2023-08-24 12:22] LABS: Magnesium 1.7 mg/dL (1.5-2.4)
[2023-08-24 12:37] LABS: ALT 54 U/L (10-49); AST 56 U/L (14-35); Albumin 4.5 g/dL (3.8-4.9); Albumin/Globulin Ratio 1.29 Ratio (1.60-3.17); Alkaline Phosphatase 79 U/L (41-126); Carbon Dioxide 23.9 mmol/L (21.6-31.8); Chloride 100 mmol/L (96-109); Globulin 3.5 g/dL (1.6-3.3); Glucose 105 mg/dL (70-110); Potassium 3.9 mmol/L (3.5-5.5); Sodium 137 mmol/L (135-145); Total Bilirubin 0.7 mg/dL (0.3-1.2)
[2023-08-24] MEDS: ALPRAZolam 0.25 MG TAB PO PRN (13:18)
[2023-08-24] MEDS ORDERED: VERAPAMIL 2.5 MG/ML 2 ML AMP ONE (16:11)
[2023-08-24] MEDS ORDERED: LIDOCAINE 1% INJ 10MG/ML (20 ML MDV) ONE (16:12)
--- NOTE | 2023-08-24 16:28 | P.PN ---
Subjective Progress Note Date: 08/24/23 Hospital course: Patient is a 48-year-old male with a past medical history of daily alcohol abuse, paroxysmal atrial fibrillation on anticoagulation with Eliquis, hypertension, hyperlipidemia, previous DVT, anxiety, and nicotine dependence. He presented to the emergency department on 08/21/2023 with a chief complaint of chest pain and epigastric pain. On arrival to the hospital, patient underwent evaluation in the emergency department. Vital signs upon arrival show blood pressure 140/99, heart rate 116, respiratory rate 18, temp 98.2 F, and SpO2 of 96% on room air. EKG was completed showing sinus tachycardia at 110 bpm with no significant T wave or ST abnormalities showing no signs of acute ischemia. Chest x-ray completed negative for acute cardiopulmonary process. Gallbladder ultrasound completed reporting to be a limited study as CBD duct and pancreas is not well visualized however is reporting hepatomegaly and hepatic steatosis no evidence of acute cholecystitis. Completed and reviewed. CBC showing pancytopenia with WBC count of 3.2, hemoglobin 12.0, and platelet count of 81. BMP showing hypokalemia with potassium of 2.9 and hypomagnesemia with magnesium of 1.4. Troponin was negative at less than 0.012. Urinalysis negative for in fection. Urine drug screen positive for benzodiazepines. Lipase elevated at 543. Alcohol level also elevated at 367. D-dimer showing elevated finding of 2.99. CTA chest was completed reporting no evidence for pulmonary emboli stating severe hepatic steatosis. Patient was admitted under our services with consultation to cardiology. Troponins trended all negative at less than 0.012 x 3 draws. Echocardiogram completed showing preserved EF of 55 to 60% with mild to moderate right ventricular dilation and mild tricuspid regurgitation. Cardiology following and planning to take patient for cardiac cath later this afternoon. Physical exam: Patient was seen and fully evaluated at bedside this morning. He reports having another episode of chest pain/discomfort overnight. He currently denies feeling any chest pain or pressure at this time. Patient is awaiting to be taken down for cardiac catheterization later this afternoon. Vital signs reviewed and stable. General: Nontoxic, no distress and appears stated age. Derm: Skin warm and dry, normal coloration for ethnicity. Head: Atraumatic, normocephalic and symmetric. Eyes: EOMs intact, no lid lag, and anicteric sclera Mouth: no lip lesions, mucus membranes moist Cardiovascular: regular rate and rhythm with normal S1S2, no murmur, positive posterior tibial pulses bilaterally, and cap refill < 2 seconds. Lungs: Respirations even, regular, and unlabored on room air. Lungs CTA jozef aterally, no rhonchi, no rales, no wheezing, and no accessory muscle usage. Abdominal: soft, nontender to palpation, no guarding, no appreciable organomegaly Ext: ROM intact. No gross muscle atrophy, no edema, no contractures Neuro: Speech clear, face symmetrical and CN II-XII grossly intact with no noted focal neuro deficits Psych: Alert and oriented to person, place, time, and situation. Appropriate and pleasant affect. Assessment and Plan of Care: Chest pain, acute coronary event ruled out Elevated D-dimer, CTA negative for PE -Cardiology following, patient scheduled for cardiac catheterization later this afternoon. -Echocardiogram completed showing preserved EF of 55 to 60% with mild to moderate right ventricular dilation and mild tricuspid regurgitation. -Telemetry monitoring -Troponins negative at less than 0.012 x 3 draws. -Continue cardiac medication regimen with Eliquis 5 mg twice daily, amiodarone 200 mg daily, atorvastatin 40 mg daily, carvedilol 6.25 mg twice daily, and Procardia 30 mg daily. Alcohol withdrawal in active alcoholic Alcohol intoxication upon arrival Epigastric pain Elevated lipase Pancytopenia, suspect secondary to chronic alcohol abuse Hypomagnesemia, secondary to daily alcohol abuse and poor oral intake Hypokalemia, secondary to daily alcohol abuse and continued -Continue monitoring of CIWA scores and patient to be medicated with Ativan 0.5 mg every 4 hours as needed for CIWA score of 4-5, Ativan 1 mg every 4 hours for CIWA score of 6-7, Ativan 2 mg every 3 hours CIWA score of 8-9, and Ativan 2 mg every 2 hours forr CIWA score of 10 or greater. -Multivitamin daily, folic acid, and thiamine daily. -Seizure and fall precautions in place. -Urine drug screen positive for benzodiazepines -Continued close monitoring of electrolytes and replace as needed. -Telemetry monitoring. Anxiety Continue Effexor 75 mg daily for 15 mg twice daily Nicotine dependence Recommend smoking cessation and order placed for nicotine patch 21 mg daily. Data and imaging reviewed: Morning labs reviewed. CBC showing bicytopenia with WBC count of 3.55 and platelet count of 92. BMP showing elevated anion gap of 13.10 otherwise normal findings. Liver profile showing elevated AST of 56, ALT of 54, and alkaline phosphatase of 79. Echocardiogram completed showing preserved EF of 55 to 60% with mild to moderate right ventricular dilation and mild tricuspid regurgitation. Morning labs reviewed. Blood pressure 116/76, heart rate 92, respiratory rate 20, temp 98.6 F, and SpO2 of 97% on 3 L. Discussed with RN weaning patient off of oxygen as patient was 94% on room air, only need oxygen supplementation to maintain SpO2 equal to or greater than 92%. CODE STATUS: Full code DVT prophylaxis: Eliquis Anticipated discharge date: Pending cardiac cath results, likely within the next [address]: Home Patient was seen independently by Nurse Pracitioner. This document was prepared using [employer] dictation software. Please allow for errors in parking patroller, while rare they do occur. Jarvis Huff NP rendered care for this patient independently, reviewed the findings and plan as documented in the note above. I did not physically speak with or examine the patient on this date. Objective - Vital Signs Vital signs: Vital Signs Temp 98.6 F 08/24/23 07:00 Pulse 92 08/24/23 07:00 Resp 20 08/24/23 07:00 BP 116/76 08/24/23 07:00 Pulse Ox 97 08/24/23 07:00 FiO2 Intake & Output 08/23/23 08/24/23 08/24/23 18:59 06:59 18:59 Intake Total 238 Balance 238 Intake: Oral 238 Other: Voiding Method Toilet Toilet # Voids 2 2 - Labs CBC & Chem 7: 08/24/23 06:37 08/24/23 06:37 Labs: Abnormal Lab Results - Last 24 Hours (Table) 08/23/23 08/23/23 Range/Units 07:18 07:18 WBC 3.32 L (4.50-10.00) X 10*3/uL RBC 4.24 L (4.40-5.60) X 10*6/uL Hct 39.3 L (39.6-50.0) % Plt Count 74 L (140-440) X 10*3/uL MPV 12.3 H (9.5-12.2) FL Neutrophils # 1.66 L (1.80-7.70) X 10*3/uL Immature Plt Fraction 11.7 H (1.1-6.1) % BUN 7.7 L (9.0-27.0) mg/dL BUN/Creatinine Ratio 8.56 L (12.00-20.00) Ratio
[2023-08-24] MEDS: SODIUM CHLORIDE 0.9% 1,000 ML IV ONE (16:30)
[2023-08-24] MEDS ORDERED: fentaNYL (PF) 50 MCG/ML 2 ML AMP ONE (16:38)
[2023-08-24] MEDS ORDERED: HEPARIN SODIUM 1,000 UN/ML (10ML VL) ONE (16:38)
[2023-08-24] MEDS: fentaNYL (PF) 50 MCG/ML 2 ML AMP IVP ONE (16:41)
[2023-08-24] MEDS: MIDAZOLAM 2 MG/2 ML VIAL IVP ONE ×2 (16:41→16:46)
[2023-08-24] MEDS: LIDOCAINE 1% INJ 10MG/ML (20 ML MDV) SQ ONE (16:42)
[2023-08-24] MEDS: VERAPAMIL SYRINGE (5 MG/10 ML) INTRAARTER ONE (16:43)
[2023-08-24] MEDS: HEPARIN SODIUM 1,000 UN/ML (10ML VL) IV ONE (16:46)
[2023-08-24] MEDS: IOPAMIDOL-370 100ML BTL INJ ONE (16:59)
[2023-08-24] MEDS ORDERED: RX INFO: IV CONTRAST WAS GIVEN 1 EACH MISC MISCELLANE PRN (17:05)
--- NOTE | 2023-08-24 17:05 | P.CARDCATH ---
Date of Procedure: 08/24/23 Description of Procedure: DIAGNOSTIC CORONARY ANGIOGRAPHY and LEFT HEART CATH REPORT PROCEDURES PERFORMED: Left heart catheterization Selective coronary angiography Moderate conscious sedation 14 mins [Ultrasound assisted] Right radial access INDICATION: 48-year-old with past medical history of paroxysmal atrial fibrillation, alcoholic, prior history of alcohol abuse, DVT history, history of PE presented to the hospital because of substernal chest pressure which was pressure-like sensation getting worse with activity and getting better with rest. His echocardiogram showed preserved LVEF. Because of his ongoing symptoms and typical nature along with risk factors of alcohol use and middle- age male, he was scheduled for a heart catheterization for unstable angina. CONSENT: I have explained the procedural steps of above-mentioned procedures in layman's terms to the patient. I discussed the risks (including but not limited to stroke, emergent vascular or cardiac surgery or ), benefits and alternative therapies for the above-mentioned procedure. I discussed the risks of sedation/analgesia and blood product administration (if indicated). The patient has indicated understanding and acceptance of these risks. Conscious Sedation: Patient's ECG, heart rate, blood pressure, pulse oximetry were monitored throughout the duration of procedure under my direct supervision. [3] mg Versed and [50] mg Fentanyl were used for induction of moderate conscious sedation. Total duration of moderate concious sedation 14 minutes. PROCEDURE: After explaining the risks, benefits and alternatives of the above mentioned procedures in detail to the patient, informed consent was obtained. Patient was taken to the catheterization lab, prepped and draped in usual sterile fashion using universal precuations. Barbow and louisa test were performed to confirm adequate perfusion to fingers. Ultrasound was used to identify the radial artery. 1% lidocaine was infiltrated over the right radial artery. A 6-Kenyan sheath was placed and secured in the right radial artery using modified Seldinger technique. The sheath was flushed and 5 mg verapamil was administered intra-arterially. J tipped wire was advanced under fluoroscopic guidance. Once the wire tip reached aortic root 6500 units of IV heparin was given. Over the wire JR4 diagnostic catheter was advanced. The wire in place the catheter was manipulated to cross the aortic valve and entered into LV under fluoroscopy guidance. The wire was removed and the catheter was flushed. LV pressures were obtained and pullback was performed under fluoroscopy. Catheter was manipulated to selectively engage the right coronary ostium. Right coronary angiography was performed in different angiographic projections. The JR4 diagnostic catheter was exchanged for a JL 4 diagnostic catheter over the J-wire. The wire was removed, catheter was flushed and manipulated under fluoroscopy to selectively engaged the left coronary ostium. Left coronary angioplasty was performed in different angiographic projections. Catheter was removed over the wire. Radial sheath was flushed. The right radial sheath was removed and a TR band was placed with excellent patent hemostasis was achieved. The patient tolerated the procedure well. Patient was transported back to the post catheterization holding area in stable condition. Angiographic images were reviewed in detail. HEMODYNAMICS: Aortic Pressure: 134/80 mmHg. LV pressure: 134/10 mmHg. LVEDP 16 mmHg. There was no significant gradient across the aortic valve. SELECTIVE CORONARY ARTERIOGRAPHY: LEFT MAIN: The left main is a large caliber vessel which bifurcates into the LAD and circumflex. Left main appears angiographically normal. LEFT ANTERIOR DESCENDING CORONARY ARTERY: LAD is a large caliber vessel which wraps around to the apex. Proximal LAD appears angiographically normal. Mid LAD appears angiographically normal. Distal LAD appears angiographically normal. It gives rise to diagonal branches appears in graphically normal LEFT CIRCUMFLEX CORONARY ARTERY: It is nondominant vessel. Left circumflex is a moderate caliber vessel. It appears angiographically normal. RIGHT CORONARY ARTERY: Dominant vessel. The right coronary artery is a large caliber vessel which gives PDA and PLV branch. It appears angiographically normal. IMPRESSION: Angiographically normal coronary arteries as described above. Normal left sided filling pressures PLAN: Aggressive risk factor modification per most recent ACC/AHA guidelines. 150 cc fluids for 3 hours Discharge home in 4 hours Follow-up in the office in 1-2 weeks. Performing Physician Martin Diana MD, FACC, RPVI Thank you for allowing [facility] to participate in this patient's care. Feel free to reach out in case of any followup questions.
[2023-08-24] MEDS: SODIUM CHLORIDE 0.9% 1,000 ML IV SCH (17:13)
[2023-08-24] MEDS: APIXABAN 5 MG TAB PO SCH (20:57)
--- NOTE | 2023-08-25 11:21 | P.PN ---
Subjective HISTORY OF PRESENT ILLNESS: 08/22/2023 48-year-old male with history of alcohol dependence, DVT, PE, paroxysmal atrial fibrillation, hypertension, dyslipidemia. He presented to the hospital because of substernal chest pressure like sensation like elephant sitting on his chest for last 2 to 3 days. His symptoms are not related to exertion. Patient reported that few weeks ago he was at [facility] for similar symptoms where he was admitted for ICU. He was told that he had intermittent atrial fibrillation. He also reported that he has prior history of PE and is on anticoagulation with Eliquis He drinks fifth of alcohol every day. On admission he had elevated D-dimer, low platelets of 114, low magnesium, hyponatremia, lipase of 543 serum alcohol of 367 CTA negative for PE ECG sinus tachycardia 08/23/2023 Patient examined this morning at the bedside. Patient continues to report chest discomfort at the time of examination. Patient currently denies any shortness of breath. Vital signs are stable. Telemetry reveals sinus mechanism. Still awaiting records from [facility]. Echocardiogram completed revealing ejection fraction 55 to 60%, mild to moderate right ventricular dilatation, mild TR. 08/25/2023 Patient examined this morning at the bedside. Patient is status post cardiac catheterization revealing normal coronary arteries. Normal left-sided filling pressures. Patient's Eliquis has been resumed. Patient currently denies shortness of breath. He continues to report some chest discomfort this morning. Vital signs are stable. PHYSICAL EXAM: VITAL SIGNS: Reviewed. GENERAL: Well-developed in no acute distress. NECK: Supple. No JVD or thyromegaly LUNGS: Respirations even and unlabored. Lungs essentially clear to auscultation bilaterally. HEART: Regular rate and rhythm. S1 and S2 heard. EXTREMITIES: Normal range of motion. No clubbing or cyanosis. Peripheral pulses intact. No lower extremity edema ASSESSMENT: Chest pain, status post cardiac catheterization revealing normal coronary arteries Acute alcohol intoxication Elevated lipase History of PE/DVT, on Eliquis outpatient Paroxysmal atrial fibrillation Hypertension Hyperlipidemia Obesity: BMI 33.0 PLAN: Continue current cardiac medications Patient stable for discharge home today from a cardiac standpoint Will sign off. Please reconsult if needed. Nurse practitioner note has been reviewed by physician. Signing provider agrees with the documented findings, assessment, and plan of care documented by SOLAR PROJECT COORDINATION SPECIALIST as a scribe. Objective - Vital Signs Vital signs: Vital Signs Temp 97.7 F 08/25/23 07:45 Pulse 90 08/25/23 07:45 Resp 18 08/25/23 07:45 BP 119/73 08/25/23 07:45 Pulse Ox 96 08/25/23 07:45 FiO2 Intake & Output 08/24/23 08/25/23 08/25/23 18:59 06:59 18:59 Intake Total 336 Balance 336 Intake: IV 100 Oral 236 Other: Voiding Method Toilet # Voids 1 3 - Labs CBC & Chem 7: 08/24/23 06:37 08/24/23 06:37 Labs: Abnormal Lab Results - Last 24 Hours (Table) 08/24/23 08/24/23 Range/Units 06:37 06:37 WBC 3.55 L (4.50-10.00) X 10*3/uL Plt Count 92 L (140-440) X 10*3/uL Anion Gap 13.10 H (4.00-12.00) mmol/L AST 56 H (14-35) U/L ALT 54 H (10-49) U/L Globulin 3.5 H (1.6-3.3) g/dL Albumin/Globulin Ratio 1.29 L (1.60-3.17) Ratio
--- NOTE | 2023-08-25 11:36 | P.DS ---
Providers Date of admission: 08/21/23 10:51 Expected date of discharge: 08/25/23 Attending physician: João Gunter MD Primary care physician: Physician Nonstaff Hospital Course: Discharge Diagnosis: Chest pain, acute coronary event ruled out Elevated D-dimer, CTA negative for PE Alcohol withdrawal in active alcoholic Alcohol intoxication upon arrival Epigastric pain Elevated lipase Pancytopenia, suspect secondary to chronic alcohol abuse Hypomagnesemia, secondary to daily alcohol abuse and poor oral intake Hypokalemia, secondary to daily alcohol abuse and continued Anxiety. Continue Effexor 75 mg daily for 15 mg twice daily Nicotine dependence. Recommend smoking cessation and order placed for nicotine patch 21 mg daily. Hospital course: Patient is a 48-year-old male with a past medical history of daily alcohol abuse, paroxysmal atrial fibrillation on anticoagulation with Eliquis, hypertension, hyperlipidemia, previous DVT, anxiety, and nicotine dependence. He presented to the emergency department on 08/21/2023 with a chief complaint of chest pain and epigastric pain. On arrival to the hospital, patient underwent evaluation in the emergency department. Vital signs upon arrival show blood pressure 140/99, heart rate 116, respiratory rate 18, temp 98.2 F, and SpO2 of 96% on room air. EKG was completed showing sinus tachycardia at 110 bpm with no significant T wave or ST abnormalities showing no signs of acute ischemia. Chest x-ray completed negative for acute cardiopulmonary process. Gallbladder ultrasound completed reporting to be a limited study as CBD duct and pancreas is not well visualized however is reporting hepatomegaly and hepatic steatosis no evidence of acute cholecystitis. Completed and reviewed. CBC showing pancytopenia with WBC count of 3.2, hemoglobin 12.0, and platelet count of 81. BMP showing hypokalemia with potassium of 2.9 and hypomagnesemia with magnesium of 1.4. Troponin was negative at less than 0.012. Urinalysis negative for inf ection. Urine drug screen positive for benzodiazepines. Lipase elevated at 543. Alcohol level also elevated at 367. D-dimer showing elevated finding of 2.99. CTA chest was completed reporting no evidence for pulmonary emboli stating severe hepatic steatosis. Patient was admitted under our services with consultation to cardiology. Troponins trended all negative at less than 0.012 x 3 draws. Echocardiogram completed showing preserved EF of 55 to 60% with mild to moderate right ventricular dilation and mild tricuspid regurgitation. Cardiology following and took patient for cardiac catheterization. Cardiac catheterization revealing normal coronary arteries. Patient cleared from cardiac perspective for discharge. Patient is also medically stable for discharge at this time. Patient strongly advised against any and all alcohol use/abuse. Recommend outpatient follow-up with PCP in 1 to 2 days and steeplechase jockey in 1 to 2 weeks. Physical exam: Vital signs reviewed and stable. General: Nontoxic, no distress and appears stated age. Derm: Skin warm and dry, normal coloration for ethnicity. Head: Atraumatic, normocephalic and symmetric. Eyes: EOMs intact, no lid lag, and anicteric sclera Mouth: no lip lesions, mucus membranes moist Cardiovascular: regular rate and rhythm with normal S1S2, no murmur, positive posterior tibial pulses bilaterally, and cap refill < 2 seconds. Lungs: Respirations even, regular, and unlabored on room air. Lungs CTA bilaterally, no rhonchi, no rales, no wheezing, and no accessory muscle usage. Abdominal: soft, nontender to palpation, no guarding, no appreciable organomegaly Ext: ROM intact. No gross muscle atrophy, no edema, no contractures Neuro: Speech clear, face symmetrical and CN II-XII grossly intact with no noted focal neuro deficits Psych: Alert and oriented to person, place, time, and situation. Appropriate and pleasant affect. A total of 34 minutes of time were spent preparing this complex discharge summary. Pt was discharged on 08/25/2023 at 9:07 AM Patient was seen independently by Nurse Practitioner. This document was prepared using [employer] dictation software. Please allow for errors in lead principal technical architect while rare they do occur. Jarvis Huff NP rendered care for this patient independently, reviewed the findings and plan as documented in the note above. I did not physically speak with or examine the patient on this date. Patient Condition at Discharge: Stable Plan - Discharge Summary New Discharge Prescriptions: Continue Thiamine [Vitamin B-1] 100 mg PO DAILY Fenofibrate,Micronized [Fenofibrate] 200 mg PO DAILY Magnesium Oxide [Magox 400] 400 mg PO BID busPIRone HCL 15 mg PO BID Apixaban [Eliquis] 5 mg PO BID methocarbamoL [Robaxin-750] 750 mg PO Q8H PRN PRN Reason: Pain hydroCHLOROthiazide [Hydrodiuril] 25 mg PO DAILY Gabapentin [Neurontin] 300 mg PO TID Pantoprazole Sodium [Protonix] 20 mg PO BID Metoprolol Succinate (ER) [Toprol XL] 50 mg PO DAILY Cholecalciferol [Vitamin D3 (25 Mcg = 1000 Iu)] 125 mcg PO DAILY Multivitamins, Thera [Multivitamin (formulary)] 1 tab PO DAILY Atorvastatin [Lipitor] 40 mg PO DAILY Acetaminophen [Tylenol Arthritis] 650 mg PO Q8H PRN PRN Reason: Pain Lidocaine [Aspercreme Patch] 1 patch TRANSDERM DAILY PRN PRN Reason: Pain Folic Acid 2 mg PO DAILY Venlafaxine HCl [Effexor XR] 75 mg PO DAILY Amiodarone [Cordarone] 200 mg PO DAILY NIFEdipine XL [Procardia XL] 30 mg PO DAILY lidocaine HCL [Asperflex] 1 applic TOPICAL BID PRN PRN Reason: Pain Discharge Medication List Acetaminophen [Tylenol Arthritis] 650 mg PO Q8H PRN 10/14/22 [History] Atorvastatin [Lipitor] 40 mg PO DAILY 10/14/22 [History] Fenofibrate,Micronized [Fenofibrate] 200 mg PO DAILY 10/14/22 [History] Magnesium Oxide [Magox 400] 400 mg PO BID 10/14/22 [History] Multivitamins, Thera [Multivitamin (formulary)] 1 tab PO DAILY 10/14/22 [History] Thiamine [Vitamin B-1] 100 mg PO DAILY 10/14/22 [History] Amiodarone [Cordarone] 200 mg PO DAILY 08/15/23 [History] Apixaban [Eliquis] 5 mg PO BID 08/15/23 [History] Folic Acid 2 mg PO DAILY 08/15/23 [History] Gabapentin [Neurontin] 300 mg PO TID 08/15/23 [History] Lidocaine [Aspercreme Patch] 1 patch TRANSDERM DAILY PRN 08/15/23 [History] Metoprolol Succinate (ER) [Toprol XL] 50 mg PO DAILY 08/15/23 [History] NIFEdipine XL [Procardia XL] 30 mg PO DAILY 08/15/23 [History] Pantoprazole Sodium [Protonix] 20 mg PO BID 08/15/23 [History] Venlafaxine HCl [Effexor XR] 75 mg PO DAILY 08/15/23 [History] busPIRone HCL 15 mg PO BID 08/15/23 [History] hydroCHLOROthiazide [Hydrodiuril] 25 mg PO DAILY 08/15/23 [History] lidocaine HCL [Asperflex] 1 applic TOPICAL BID PRN 08/15/23 [History] methocarbamoL [Robaxin-750] 750 mg PO Q8H PRN 08/15/23 [History] Cholecalciferol [Vitamin D3 (25 Mcg = 1000 Iu)] 125 mcg PO DAILY 08/21/23 [History] Follow up Appointment(s)/Referral(s): Robles Lewis DO [STAFF PHYSICIAN] - 1 Week (Office will call patient with apointment ) Steve Mcintosh III, MD [STAFF PHYSICIAN] - 1 Week (Please call and set up appointment to establish care with PCP) Patient Instructions/Handouts: Chest Pain (DC), Abuse of Alcohol (DC), Alcohol Withdrawal (DC), After Radial Heart Catheterization (GEN) Discharge/Stand Alone Forms: AA Meetings [address] - [facility], AA Meetings [place], Who Do I Call?, Community Resources, Outpatient Counseling, Inp Substance Abuse Facilities Discharge Disposition: HOME SELF-CARE
[2023-08-25 14:37] VITALS: BP 116/78; PULSE 92; RESP 19; TEMP 98.3
== END 2023-08-25 15:29 | disposition home or self-care (01) ==
LOC: EC 06:24 → 6NMEDSUR 10:51
PROVIDERS: ADMIT Student in an Organized Health Care Education/Training Program; ATTEND Student in an Organized Health Care Education/Training Program
DX: R07.89 Other chest pain (principal); R10.13 Epigastric pain; F10.229 Alcohol dependence with intoxication, unspecified; F10.239 Alcohol dependence with withdrawal, unspecified; I48.0 Paroxysmal atrial fibrillation; K21.9 Gastro-esophageal reflux disease without esophagitis; I10 Essential (primary) hypertension; F41.9 Anxiety disorder, unspecified; R74.8 Abnormal levels of other serum enzymes; J45.909 Unspecified asthma, uncomplicated; F32.A Depression, unspecified; E78.5 Hyperlipidemia, unspecified; R00.0 Tachycardia, unspecified; D61.818 Other pancytopenia; E87.0 Hyperosmolality and hypernatremia; E83.42 Hypomagnesemia; R79.89 Other specified abnormal findings of blood chemistry; E87.6 Hypokalemia; D68.59 Other primary thrombophilia; E66.01 Morbid (severe) obesity due to excess calories; F17.200 Nicotine dependence, unspecified, uncomplicated; Y90.8 Blood alcohol level of 240 mg/100 ml or more; Z68.33 Body mass index [BMI] 33.0-33.9, adult; Z86.711 Personal history of pulmonary embolism; Z86.718 Personal history of other venous thrombosis and embolism; Z79.01 Long term (current) use of anticoagulants; Z79.899 Other long term (current) drug therapy
CPT/HCPCS: 96376 ×3; 96366 ×2; 96361; 96365; 96372; 96375; 99285; 36415; 94760; 93005; 93458; 76937; 85379; 80053 ×2; 80048 ×2; 82150; 83690; 83735 ×4; 84484; 85025 ×3; 85027; 85610; 85730; 81001; 80306; 71046; 76705; 71275; G0378 ×5; C8929; C1769 ×2; C1894; G0480; S4990 ×3; J2250; J2060 ×2; J3411; J2405; J2001; J3010; J3490; Q9957; J1644; J3475 ×2; J1885; Q9967 ×2; 80320; 93306